=== PATIENT | female | born 1940 | race Caucasian/White ===

== ENCOUNTER 2018-04-15 15:56 | Inpatient (IN) | payer OTHER, MEDICAID ==
[~2018-04-15] VITALS: Ht 167.6 cm; Wt 81.6 kg
[~2018-04-15 15:56] MED LIST: CEPH-568 PO; DOXA4TAB2 PO; ENAL20TA PO; GLU500 PO; LORA-259 PO; TAMS-11 PO
[2018-04-15 16:59] VITALS: BP_SYST 151
[2018-04-15 17:42] VITALS: BP_SYST 151
[2018-04-15] MEDS ORDERED: MORPHINE 2 MG/ML INJ. SYRINGE IVP ONE (18:30)
[2018-04-15] MEDS ORDERED: MORPHINE 2 MG/ML INJ. SYRINGE ONE (18:33)
[2018-04-15] MEDS ORDERED: DEXTROSE 50% JECT 50 ML DISP.SYRIN IVP PRN (19:00)
[2018-04-15] MEDS ORDERED: INSULIN REGULAR, HUMAN 100 UNITS/ML, 10 ML VIAL (novoLIN R) SUBCUT PRN (19:00)
[2018-04-15 19:09] LABS: BASOPHILS % (AUTO) 0.3 % (0.0-2.0); EOSINOPHILS # (AUTO) 0.3 K/uL (0.0-0.4); EOSINOPHILS % (AUTO) 5.7 % (0.0-4.0); HEMOGLOBIN 11.2 g/dL (12.0-16.0); LYMPHOCYTES # (AUTO) 1.8 K/uL (1.0-5.5); LYMPHOCYTES % (AUTO) 32.2 % (20.5-51.5); MEAN CORPUSCULAR HEMOGLOBIN 30 pg (27-31); MEAN CORPUSCULAR HGB CONC 33 % (32-36); MEAN CORPUSCULAR VOLUME 90 fL (79.0-98.0); MONOCYTES # (AUTO) 0.4 K/uL (0.0-1.0); NEUTROPHILS # (AUTO) 3.2 K/uL (1.8-7.7); NEUTROPHILS % (AUTO) 54.8 % (40.0-70.0); PLATELET COUNT (AUTO) 172 K/uL (130-430); RED CELL DISTRIBUTION WIDTH 13.8 % (9.0-15.0); WHITE BLOOD COUNT (AUTO) 5.7 K/uL (4.8-10.8)
[2018-04-15 19:17] LABS: ALANINE AMINOTRANSFERASE 35 U/L (12-78); ALBUMIN 3.5 g/dL (3.4-4.8); ANION GAP 9 (5-15); ASPARTATE AMINOTRANSFERASE 29 U/L (10-37); CALCIUM 9.4 mg/dL (8.4-11.0); CHLORIDE 104 mmol/L (98-107); CREATININE 0.94 mg/dL (0.55-1.30); GLUCOSE 90 mg/dL (70-99); POTASSIUM 4.2 mmol/L (3.5-5.1); SODIUM SERUM 135 mmol/L (136-145); TOTAL BILIRUBIN 0.6 mg/dL (0.0-1.0); UREA NITROGEN, BLOOD 19 mg/dL (8-21)
[2018-04-15] MEDS: CEFEPIME 1 GM in D5W 50 ML IV SCH (19:57)
[2018-04-15 20:00] VITALS: BP_SYST 137
[2018-04-15] MEDS ORDERED: POLYETHYLENE GLYCOL 3350, 17 GM/ POWD.PACK PO PRN (20:15)
[2018-04-15] MEDS ORDERED: VANCOMYCIN HCL 1 GM/NS PREMIX 250 ML IV SCH (21:00)
[2018-04-15] MEDS: LORazepam 1 MG TABLET PO SCH (21:21)
[2018-04-15] MEDS: MORPHINE 4 MG/ML INJ. SYRINGE IVP PRN (21:23)
[2018-04-16 00:17] VITALS: BP_SYST 111
[2018-04-16] MEDS: MORPHINE 4 MG/ML INJ. SYRINGE IVP PRN ×2 (02:45→15:56)
[2018-04-16 08:00] VITALS: BP_SYST 112
[2018-04-16] MEDS: CEFEPIME 1 GM in D5W 50 ML IV SCH ×2 (08:51→20:06)
[2018-04-16] MEDS: ENALAPRIL MALEATE 10 MG TABLET (VASOTEC) PO SCH (08:51)
[2018-04-16] MEDS: LORazepam 1 MG TABLET PO SCH ×2 (08:51→20:17)
[2018-04-16 09:33] LABS: THYROID STIMULATING HORMONE 3.76 uIu/mL (0.34-4.82)
[2018-04-16] MEDS: DOXAZOSIN MESYLATE 2 MG TABLET PO SCH (10:53)
[2018-04-16] MEDS: ENOXAPARIN SODIUM 30 MG/0.3 ML SYRINGE SUBCUT SCH (10:56)
[2018-04-16 17:12] VITALS: BP_SYST 120
[2018-04-16 20:09] VITALS: BP_SYST 121
[2018-04-16] MEDS: VANCOMYCIN HCL 1,250 MG in NS 250 ML IV SCH (21:21)
[2018-04-17] MEDS: MORPHINE 4 MG/ML INJ. SYRINGE IVP PRN ×2 (00:26→05:41)
[2018-04-17 00:54] VITALS: BP_SYST 113
[2018-04-17] MEDS ORDERED: IOHEXOL 350 mgI/mL, 150 ML INFUS..BTL IV ONE (08:25)
[2018-04-17 08:29] VITALS: BP_SYST 112
[2018-04-17] MEDS: ENALAPRIL MALEATE 10 MG TABLET (VASOTEC) PO SCH (09:00)
[2018-04-17] MEDS: CEFEPIME 1 GM in D5W 50 ML IV SCH (09:15)
[2018-04-17] MEDS: DOXAZOSIN MESYLATE 2 MG TABLET PO SCH (09:15)
[2018-04-17] MEDS: LORazepam 1 MG TABLET PO SCH ×2 (09:15→21:33)
[2018-04-17] MEDS: ENOXAPARIN SODIUM 30 MG/0.3 ML SYRINGE SUBCUT SCH (09:17)
[2018-04-17] MEDS ORDERED: ONDANSETRON HCL 4 MG/2 ML VIAL IVP PRN (10:00)
[2018-04-17 11:19] LABS: BILIRUBIN,URINE NEGATIVE (NEGATIVE); CLARITY/URINE CLEAR (CLEAR); COLOR,URINE YELLOW (YELLOW); GLUCOSE,URINE NEGATIVE (NEGATIVE); KETONES,URINE NEGATIVE (NEGATIVE); LEUKOCYTE ESTERASE ,URINE NEGATIVE (NEGATIVE); NITRITE, URINE NEGATIVE (NEGATIVE); PROTEIN URINE NEGATIVE (NEGATIVE); UROBILINOGEN,URINE 0.2 (0.2-1.0)
[2018-04-17 11:27] LABS: INR 1.1 (0.8-1.2)
[2018-04-17 11:37] LABS: BLOOD, URINE TRACE (NEGATIVE)
[2018-04-17 11:39] LABS: BACTERIA,URINE FEW /HPF (None Seen); MUCUS,URINE None Seen /LPF (None Seen); RBC,URINE 0-3 /HPF (0-3); WBC,URINE 0-3 /HPF (0-3)
[2018-04-17 12:00] VITALS: BP_SYST 132; BP_SYST 147
[2018-04-17] MEDS: FLUOCINONIDE 0.05% TOPICAL CREAM 15 GM (LIDEX) TP SCH ×2 (14:13→21:34)
[2018-04-17] MEDS: AMPICILLIN SODIUM 1 GM in NS 50 ML IV SCH ×2 (14:13→18:19)
[2018-04-17 16:00] VITALS: BP_SYST 149
[2018-04-17 20:00] VITALS: BP_SYST 152
[2018-04-17] MEDS: VANCOMYCIN HCL 1,250 MG in NS 250 ML IV SCH (20:17)
[2018-04-18] MEDS: AMPICILLIN SODIUM 1 GM in NS 50 ML IV SCH ×3 (00:41→12:28)
[2018-04-18 01:07] VITALS: BP_SYST 141
[2018-04-18] MEDS: MORPHINE 4 MG/ML INJ. SYRINGE IVP PRN ×2 (04:49→12:41)
[2018-04-18 08:00] VITALS: BP_SYST 137
[2018-04-18] MEDS: DOXAZOSIN MESYLATE 2 MG TABLET PO SCH (09:50)
[2018-04-18] MEDS: ENALAPRIL MALEATE 10 MG TABLET (VASOTEC) PO SCH (09:51)
[2018-04-18] MEDS: LORazepam 1 MG TABLET PO SCH (09:51)
[2018-04-18] MEDS: ENOXAPARIN SODIUM 30 MG/0.3 ML SYRINGE SUBCUT SCH (09:52)
[2018-04-18] MEDS: FLUOCINONIDE 0.05% TOPICAL CREAM 15 GM (LIDEX) TP SCH (09:54)
[2018-04-18 12:00] VITALS: BP_SYST 144
[2018-04-18 14:12] VITALS: BP_SYST 140
[2018-04-18] MEDS ORDERED: HYDROCORTISONE 2.5%, 30 GM TOPICAL CREAM TP SCH (21:00)
[2018-04-18] MEDS ORDERED: CILOSTAZOL 50 MG TABLET (PLETAL) PO SCH (21:00)
[2018-04-19] MEDS ORDERED: ASPIRIN 81 MG TAB.CHEW PO SCH (09:00)
== END 2018-04-18 16:40 | DRG 863 ==
LOC: SMU 16:36
PROVIDERS: ADMIT Internal Medicine Hospice and Palliative Medicine; ATTEND Internal Medicine Hospice and Palliative Medicine
PROC: 02HV33Z Insertion of Infusion Device into Superior Vena Cava, Percutaneous Approach (ICD-10-PCS; principal; 2018-04-17)
PROC: B548ZZA Ultrasonography of Superior Vena Cava, Guidance (ICD-10-PCS; 2018-04-17)
DX: T81.40XA Infection following a procedure, unspecified, initial encounter (principal); L03.116 Cellulitis of left lower limb; I10 Essential (primary) hypertension; F41.9 Anxiety disorder, unspecified; E78.5 Hyperlipidemia, unspecified; E11.51 Type 2 diabetes mellitus with diabetic peripheral angiopathy without gangrene; I87.2 Venous insufficiency (chronic) (peripheral); Y83.8 Other surgical procedures as the cause of abnormal reaction of the patient, or of later complication, without mention of misadventure at the time of the procedure; Y92.89 Other specified places as the place of occurrence of the external cause; G51.0 Bell's palsy; K43.9 Ventral hernia without obstruction or gangrene; Z87.442 Personal history of urinary calculi; Z87.891 Personal history of nicotine dependence; Z90.49 Acquired absence of other specified parts of digestive tract; Z91.19 Patient's noncompliance with other medical treatment and regimen
CPT/HCPCS: 36415; 71045; 75635; 80053; 80061; 81000-TC; 82962; 83036; 84443-TC; 85025; 85610-TC; 85730-TC; 87081; 90656; 93005; 93306; 93923; 93970; C1751; J0290; J0692; J1650; J2270; J2405; J3370; J7050; J7060; Q9967

== ENCOUNTER 2018-06-15 16:40 | Emergency (ER) | payer OTHER, MEDICAID ==
[~2018-06-15] VITALS: Ht 167.6 cm; Wt 86.2 kg
[~2018-06-15 16:40] MED LIST changes: -CEPH-568 PO; -TAMS-11 PO
--- NOTE | 2018-06-15 16:42 | NUR ---
Patient to ER bed 06 to gown for evaluation. Side rails up.
--- NOTE | 2018-06-15 16:45 | NUR ---
Pt presents to ED for left leg pain and swelling that has gotten worse for the last month. Pt states that she saw her PMD2 weeks ago and was prescribed Gabapentin. Pt states her pain has become severe. Pt able to ambulate but pain is constant. Otherwise, the patient denies fever, chills, nausea, vomiting, abdominal pain, sick contacts, recent trauma or injury, weakness, numbness, or tingling to her extremities, or other pain at this time.
--- NOTE | 2018-06-15 16:50 | NUR ---
ER Dr. Larose at bedside examining patient.
[2018-06-15 16:52] VITALS: BP_SYST 164
[2018-06-15] MEDS ORDERED: KETOROLAC TROMETHAMINE 30 MG VIAL IVP ONE (17:00)
[2018-06-15] MEDS ORDERED: NACL 0.9% 1,000 ML IV ONE (17:00)
[2018-06-15] MEDS ORDERED: CLINDAMYCIN 600 mg/50mL D5W 50 ML IV ONE (17:00)
--- NOTE | 2018-06-15 17:40 | NUR ---
# 20 gauge angiocath placed to LAC. Use of asceptic technique. Opsite placed over site. Blood return noted. Flushed with 10 cc of normal saline. No evidence of infiltration noted. Patient tolerated well.
[2018-06-15 17:57] LABS: BASOPHILS % (AUTO) 0.4 % (0.0-2.0); EOSINOPHILS # (AUTO) 0.2 K/uL (0.0-0.4); HEMATOCRIT 34.8 % (36-48); HEMOGLOBIN 11.4 g/dL (12.0-16.0); LYMPHOCYTES # (AUTO) 1.5 K/uL (1.0-5.5); LYMPHOCYTES % (AUTO) 31.9 % (20.5-51.5); MEAN CORPUSCULAR HEMOGLOBIN 29 pg (27-31); MEAN CORPUSCULAR HGB CONC 33 % (32-36); MEAN CORPUSCULAR VOLUME 88 fL (79.0-98.0); MONOCYTES # (AUTO) 0.3 K/uL (0.0-1.0); MONOCYTES % (AUTO) 6.2 % (1.7-9.3); NEUTROPHILS # (AUTO) 2.7 K/uL (1.8-7.7); NEUTROPHILS % (AUTO) 56.5 % (40.0-70.0); PLATELET COUNT (AUTO) 182 K/uL (130-430); RED BLOOD CELL COUNT(AUTO) 3.96 MIL/uL (4.2-6.2); RED CELL DISTRIBUTION WIDTH 12.9 % (9.0-15.0); WHITE BLOOD COUNT (AUTO) 4.7 K/uL (4.8-10.8)
[2018-06-15 18:05] LABS: ANION GAP 9 (5-15); CALCIUM 9.1 mg/dL (8.4-11.0); CHLORIDE 103 mmol/L (98-107); CREATININE 0.92 mg/dL (0.55-1.30); GLUCOSE 95 mg/dL (70-99); POTASSIUM 3.8 mmol/L (3.5-5.1); SODIUM SERUM 137 mmol/L (136-145); UREA NITROGEN, BLOOD 19 mg/dL (8-21)
[2018-06-15 18:10] LABS: ALANINE AMINOTRANSFERASE 27 U/L (12-78); ALBUMIN 3.5 g/dL (3.4-4.8); ASPARTATE AMINOTRANSFERASE 26 U/L (10-37); TOTAL BILIRUBIN 0.5 mg/dL (0.0-1.0)
[2018-06-15] MEDS ORDERED: MORPHINE 4 MG/ML INJ. SYRINGE IVP ONE (18:30)
--- NOTE | 2018-06-15 19:21 | NUR ---
Received report from YOCASTA Gibson. All care endorsed.
--- NOTE | 2018-06-15 19:21 | NUR ---
Patient in bed, no s/s of acute distress noted. Gave report to YOCASTA Mon.
[2018-06-15 19:48] VITALS: BP_SYST 136
--- NOTE | 2018-06-15 19:48 | NUR ---
Patient given written and verbal discharge instructions and verbalizes understanding. ER MD discussed with patient the results and treatment provided. Patient in stable condition. ID arm band removed. IV catheter removed intact and dressing applied, no active bleeding. Rx of Clindamycin and [place] given. Patient educated on pain management and to follow up with PMD. Pain Scale 0. Opportunity for questions provided and answered. Medication side effect fact sheet provided.
== END 2018-06-15 19:48 | disposition home or self-care (01) ==
LOC: SED 16:40
DX: L03.116 Cellulitis of left lower limb (principal); E11.9 Type 2 diabetes mellitus without complications; I10 Essential (primary) hypertension; Z86.79 Personal history of other diseases of the circulatory system; Z88.1 Allergy status to other antibiotic agents
CPT/HCPCS: 36415; 80053; 83605; 85025; 87040; 93971; 96365; 96375; 99284; J1885; J2270; J3490; J7030

== ENCOUNTER 2018-06-17 14:50 | Inpatient (IN) | payer OTHER, MEDICAID ==
[~2018-06-17] VITALS: Ht 165.1 cm; Wt 84.8 kg
[2018-06-17 14:56] VITALS: BP_SYST 174
[2018-06-17 15:42] LABS: BASOPHILS % (AUTO) 0.5 % (0.0-2.0); EOSINOPHILS # (AUTO) 0.2 K/uL (0.0-0.4); EOSINOPHILS % (AUTO) 4.4 % (0.0-4.0); HEMATOCRIT 35.4 % (36-48); HEMOGLOBIN 11.8 g/dL (12.0-16.0); LYMPHOCYTES # (AUTO) 1.5 K/uL (1.0-5.5); LYMPHOCYTES % (AUTO) 32.3 % (20.5-51.5); MEAN CORPUSCULAR HEMOGLOBIN 29 pg (27-31); MEAN CORPUSCULAR HGB CONC 33 % (32-36); MEAN CORPUSCULAR VOLUME 88 fL (79.0-98.0); MONOCYTES # (AUTO) 0.2 K/uL (0.0-1.0); MONOCYTES % (AUTO) 4.6 % (1.7-9.3); NEUTROPHILS # (AUTO) 2.7 K/uL (1.8-7.7); NEUTROPHILS % (AUTO) 58.2 % (40.0-70.0); PLATELET COUNT (AUTO) 199 K/uL (130-430); RED BLOOD CELL COUNT(AUTO) 4.02 MIL/uL (4.2-6.2); RED CELL DISTRIBUTION WIDTH 12.9 % (9.0-15.0); WHITE BLOOD COUNT (AUTO) 4.6 K/uL (4.8-10.8)
[2018-06-17 15:56] LABS: ANION GAP 5 (5-15); CALCIUM 9.4 mg/dL (8.4-11.0); CHLORIDE 102 mmol/L (98-107); CREATININE 0.88 mg/dL (0.55-1.30); GLUCOSE 97 mg/dL (70-99); SODIUM SERUM 133 mmol/L (136-145); UREA NITROGEN, BLOOD 19 mg/dL (8-21)
[2018-06-17 16:00] LABS: ALANINE AMINOTRANSFERASE 31 U/L (12-78); ALBUMIN 3.6 g/dL (3.4-4.8); ASPARTATE AMINOTRANSFERASE 31 U/L (10-37); C-REACTIVE PROTEIN QUANT 1.8 mg/dL (0-0.5); TOTAL BILIRUBIN 0.5 mg/dL (0.0-1.0)
--- NOTE | 2018-06-17 17:25 | NUR ---
BROUGHT BACK TO BED #2 VIA WHEELCHAIR, PLACED IN BED AND RECEIVED REPORT. PTS DAUGHTER AT BEDSIDE FOR SUPPORT.
--- NOTE | 2018-06-17 17:30 | NUR ---
PT STATES THAT SHE WAS HERE 2 DAYS AGO AND WAS DISCHARGED. PT STATES THAT SHE TOOK JUST ONE DOSE OF ANTIBIOTICS, PT STATES THAT THE [place] IS BARELY TOUCHING HER PAIN. PT STATES THAT SHE WANTS TO BE ADMITTED TODAY AND GET IV ANTIBIOTICS WITH STRONGER PAIN MEDICATION. PT STATES THAT THE CELLULITIS HAS SPREAD IN THE LAST 2 DAYS.
[2018-06-17] MEDS ORDERED: DIPH-TET-PERTUS Vaccine 0.5 ML VIAL (ADACEL) IM ONE (17:45)
[2018-06-17] MEDS ORDERED: LIDOCAINE 1% 10 MG/ML, 20 ML MDV INJ ONE (17:45)
--- NOTE | 2018-06-17 17:48 | NUR ---
DR GONZALES PERFORMING NEEDLE ASPIRATION ON LEFT LOWER LEG CELLULITIS AT BEDSIDE, PT TOLERATED IT WELL. NO FLUID ASPIRATED.
--- NOTE | 2018-06-17 17:56 | NUR ---
Medication reconciliation completed with information provided by PATIENT. Any prior medication reconciliation on file was reviewed and corrected.
[2018-06-17] MEDS ORDERED: CLINDAMYCIN PHOSPHATE 300 MG/2 ML VIAL IM ONE (18:00)
--- NOTE | 2018-06-17 18:15 | NUR ---
Pt placed on bed odonnell
[2018-06-17] MEDS ORDERED: HYDROcodone/ACETAMIN 10-325 MG TAB PO ONE (18:30)
[2018-06-17] MEDS: CLINDAMYCIN 600 MG in D5W 50 ML IV SCH (18:33)
[2018-06-17] MEDS ORDERED: CLINDAMYCIN 600 mg/50mL D5W 50 ML IV ONE (18:39)
--- NOTE | 2018-06-17 18:43 | NUR ---
Reports was called to Mer[facility]UST in Med-surg. Patient will be admitted care of Dr. Steel. Patient will be transported to Med[facility]urg [place] [facility] by EMT.
--- NOTE | 2018-06-17 19:04 | NUR ---
ADMISSION: The patient, RUSLAN SPRINGER, 78 y/o, F admitted by HOLLAND ROBERTO MD, was given written information regarding hospital policies, unit procedures and contact persons. Valuables were checked and pt was informed her nurse will be Michael.
[2018-06-17 19:15] VITALS: BP_SYST 154
[2018-06-17 19:30] VITALS: BP_SYST 154
[2018-06-17] MEDS ORDERED: cloNIDine HCL 0.1 MG TABLET PO PRN (19:45)
[2018-06-17] MEDS ORDERED: INSULIN REGULAR, HUMAN 100 UNITS/ML, 10 ML VIAL (novoLIN R) SUBCUT PRN (19:45)
[2018-06-17] MEDS ORDERED: ENALAPRILAT DIHYDRATE 1.25 MG/ML VIAL IVP PRN (19:45)
[2018-06-17] MEDS ORDERED: DEXTROSE 50% JECT 50 ML DISP.SYRIN IVP PRN (19:45)
[2018-06-17] MEDS ORDERED: VANCOMYCIN HCL 1 GM/NS PREMIX 250 ML IV ONE (20:00)
[2018-06-17] MEDS ORDERED: MORPHINE 4 MG/ML INJ. SYRINGE IVP PRN (20:30)
[2018-06-17] MEDS: MORPHINE 4 MG/ML INJ. SYRINGE IVP PRN (20:47)
[2018-06-17] MEDS: LORazepam 1 MG TABLET PO SCH (20:50)
[2018-06-17] MEDS ORDERED: VANCOMYCIN HCL 1000 MG/VIAL IV ONE (20:55)
[2018-06-17] MEDS: CLINDAMYCIN 600 mg/50mL D5W 100 ML IV ONE (22:10)
[2018-06-17 23:21] VITALS: BP_SYST 149
[2018-06-18] MEDS: CLINDAMYCIN 600 mg/50mL D5W 100 ML IV ONE (00:27)
[2018-06-18] MEDS: MORPHINE 4 MG/ML INJ. SYRINGE IVP PRN ×4 (00:35→20:38)
[2018-06-18] MEDS: CLINDAMYCIN 600 MG in D5W 50 ML IV SCH ×4 (05:27→23:42)
--- NOTE | 2018-06-18 06:30 | NUR ---
pt.was received via the er-dept.pt.presented lt.lower extremity cellulitis;wound.i have photographed the wound.i have attended to the wound care,pt.presents diabetic history.i had attended to the blood glucose assessment;values;80,90,100.i had re-established iv access line;location;lt.hand;#24g.i have administered morphine;4mg ivp x3 doses.pt.was repositioned q-2hrs. i had provided snacks w/in th shift.i had attended to the wound care.initial care.general status stable.respiratory status stable@room air.call light/telephone placed w/in the pt's reach. was paged for thew blood glucose schedule,pain mgx medication;ordered;morphine:2mg ivp moderate pain.morphine;4mg ivp severe pain.
--- NOTE | 2018-06-18 08:07 | NUR ---
OPENING NOTE PATIENT RECEIVED RESTING IN BED, PATIENT DENIES ANY ACUTE DISTRESS, PAIN IS CONTROLLED AT THIS TIME, BREATHING IS EVEN AND UNLABORED, PATIENT IS AWAKE, ALERT, AND ORIENTED X 4, EDUCATED PATIENT DECORATING INSTRUCTOR LIGHT SYSTEM AND PLAN OF CARE, WILL CONTINUE TO MONITOR, SAFETY PRECAUTIONS IN PLACE, CALL LIGHT WITHIN REACH.
[2018-06-18 08:11] VITALS: BP_SYST 116
--- NOTE | 2018-06-18 08:35 | NUR ---
Nutrition Update Lorenzo Scale 15 noted. Pt admitted for diabetic wound Diet: [facility] [place] diet BMI: 31 kg/m2 RD to follow per nutrition care standards.
[2018-06-18] MEDS: LORazepam 1 MG TABLET PO SCH ×2 (08:40→20:37)
[2018-06-18] MEDS: DOXAZOSIN MESYLATE 2 MG TABLET PO SCH (08:40)
[2018-06-18] MEDS: metFORMIN HCL 500 MG TABLET PO SCH ×2 (08:40→17:47)
[2018-06-18] MEDS: ENALAPRIL MALEATE 10 MG TABLET (VASOTEC) PO SCH (08:41)
[2018-06-18] MEDS: VANCOMYCIN HCL 750 MG/NS 250 ML IV SCH ×2 (10:07→23:40)
--- NOTE | 2018-06-18 10:17 | NUR ---
NOTES PATIENT IS RESTING IN BED, PATIENT IS AWAKE, ALERT, AND ORIENTED, BREATHING IS EVEN AND UNLABORED, IVF INFUSING WELL WITH NO SIGNS OF INFILTRATION, PATIENT DENIES ANY ACUTE DISTRESS, PAIN IS CONTROLLED AT THIS TIME, WILL CONTINUE TO MONITOR, SAFETY PRECAUTIONS IN PLACE, CALL LIGHT WITHIN REACH.
--- NOTE | 2018-06-18 11:08 | NUR ---
ID consult called: for Dr. Gomez, regarding cellulitis, ordered by Dr. Steel, spoke with [place]
[2018-06-18 12:24] VITALS: BP_SYST 117
--- NOTE | 2018-06-18 12:25 | NUR ---
NOTES / BLOOD SUGAR BLOOD SUGAR IS 98 AT THIS TIME, NO INSULIN COVERAGE NEEDED PER SLIDING SCALE, PATIENT IS RESTING IN BED A&O X4, BREATHING IS EVEN AND UNLABORED, IVF INFUSING WELL WITH NO SIGNS OF INFILTRATION, NO ACUTE DISTRESS NOTED, PAIN IS CONTROLLED AT THIS TIME, WILL CONTINUE TO MONITOR, SAFETY PRECAUTIONS IN PLACE, CALL LIGHT WITHIN REACH.
--- NOTE | 2018-06-18 14:45 | NUR ---
NOTES PATIENT IS RESTING IN BED WITH EYES CLOSED, NO ACUTE DISTRESS NOTED, PAIN IS CONTROLLED AT THIS TIME, BREATHING IS EVEN AND UNLABORED, IVF INFUSING WELL WITH NO SIGNS OF INFILTRATION, WILL CONTINUE TO MONITOR, SAFETY PRECAUTIONS IN PLACE, CALL LIGHT WITHIN REACH.
[2018-06-18 16:02] VITALS: BP_SYST 115
--- NOTE | 2018-06-18 16:43 | NUR ---
NOTES PATIENT IS RESTING IN BED WITH EYES CLOSED, IV IS PATENT, BREATHING IS EVEN AND UNLABORED, NO SIGNS OF ACUTE DISTRESS IS NOTED, PAIN IS CONTROLLED AT THIS TIME, WILL CONTINUE TO MONITOR, SAFETY PRECAUTIONS IN PLACE, CALL LIGHT WITHIN REACH.
--- NOTE | 2018-06-18 18:44 | NUR ---
CLOSING NOTE PATIENT RESTING IN BED EATING DINNER AT THIS TIME, IVF INFUSING WELL WITH NO SIGNS OF INFILTRATION, BREATHING IS EVEN AND UNLABORED, PATIENT DENIES ANY ACUTE DISTRESS OR PAIN AT THIS TIME, ALL NEEDS WERE MET THROUGHOUT SHIFT, WILL ENDORSE REPORT TO ONCOMING NURSE, SAFETY PRECAUTIONS IN PLACE, CALL LIGHT WITHIN REACH.
--- NOTE | 2018-06-18 19:48 | NUR ---
Opening notes Received report. Patient resting comfortably in bed. No signs of distress noted. Breathing is even and unlabored. Does not complain of any pain. No needs at this moment. IV is patent and intact. Educated the patient remote operations producer light. Safety precautions in place.
[2018-06-18 20:00] VITALS: BP_SYST 111
--- NOTE | 2018-06-18 20:37 | NUR ---
Scheduled meds/prn pain meds Patient complains of 9/10 pain to left lower extremity. Educated the patient the action and side effects of medications. Patient verbalized understanding. Patient tolerated well. No signs of allergic reaction noted.
[2018-06-18 22:15] VITALS: BP_SYST 135
--- NOTE | 2018-06-18 22:30 | NUR ---
IV RE-INSERTION: Complaining of pain to IV sites. Restarted on right hand. Successful after 2 attempts. Will observe for any signs of infiltration.
--- NOTE | 2018-06-19 00:45 | NUR ---
RN rounds Patient asleep in bed. No signs of distress noted. Breathing is even and unlabored. IV is patent and intact, infusing antibiotics. Safety precautions in place.
--- NOTE | 2018-06-19 03:05 | NUR ---
RN rounds Assisted patient onto bed odonnell to void. Patient tolerated well. 100 ml of clear, yellow urine noted.
--- NOTE | 2018-06-19 04:32 | NUR ---
Pt sleeping Patient is asleep and snoring. No signs of distress noted. Safety precautions in place.
[2018-06-19] MEDS: CLINDAMYCIN 600 MG in D5W 50 ML IV SCH (05:40)
[2018-06-19] MEDS: MORPHINE 4 MG/ML INJ. SYRINGE IVP PRN ×3 (05:45→20:05)
--- NOTE | 2018-06-19 05:46 | NUR ---
Scheduled/prn meds Patient complains of 9/10 pain to left leg. Educated the patient the action and side effects of medications. Patient verbalized understanding and tolerated well. Accucheck 85. No insulin coverage necessary.
--- NOTE | 2018-06-19 06:45 | NUR ---
Closing notes Patient resting comfortably in bed. No signs of distress noted. Breathing is even and unlabored. IV is patent and intact. All needs met. Practice guidelines met throughout the shift. Call light is with the patient. Safety precautions in place. Will endorse to day shift RN.
[2018-06-19 06:55] LABS: ANION GAP 7 (5-15); CALCIUM 8.5 mg/dL (8.4-11.0); CHLORIDE 104 mmol/L (98-107); CREATININE 0.88 mg/dL (0.55-1.30); GLUCOSE 92 mg/dL (70-99); POTASSIUM 3.9 mmol/L (3.5-5.1); SODIUM SERUM 138 mmol/L (136-145); UREA NITROGEN, BLOOD 21 mg/dL (8-21)
[2018-06-19 07:01] LABS: ALANINE AMINOTRANSFERASE 20 U/L (12-78); ALBUMIN 2.6 g/dL (3.4-4.8); ASPARTATE AMINOTRANSFERASE 27 U/L (10-37); TOTAL BILIRUBIN 0.7 mg/dL (0.0-1.0)
[2018-06-19 08:00] VITALS: BP_SYST 149
--- NOTE | 2018-06-19 08:00 | NUR ---
Opening Note Report received from [facility] shift nurse. Patient is currently awake and resting in bed. No signs of distress noted at the moment. IV is on the right hand 24g, saline locked. LLE is elevated on a pillow. Call light is within reach and bed is in low position. Will continue to monitor.
[2018-06-19] MEDS: LORazepam 1 MG TABLET PO SCH ×2 (09:32→20:04)
[2018-06-19] MEDS: DOXAZOSIN MESYLATE 2 MG TABLET PO SCH (09:32)
[2018-06-19] MEDS: metFORMIN HCL 500 MG TABLET PO SCH ×2 (09:32→17:16)
[2018-06-19] MEDS: ENALAPRIL MALEATE 10 MG TABLET (VASOTEC) PO SCH (09:33)
[2018-06-19] MEDS: ENOXAPARIN SODIUM 30 MG/0.3 ML SYRINGE SUBCUT SCH (09:34)
[2018-06-19] MEDS: VANCOMYCIN HCL 750 MG/NS 250 ML IV SCH (09:35)
--- NOTE | 2018-06-19 10:35 | NUR ---
MD Rounds Dr. oHlland rounded on the patient. changed the current antibiotics.
[2018-06-19] MEDS ORDERED: FLUCONAZOLE 200 MG TABLET (DIFLUCAN) PO ONE (10:45)
[2018-06-19 11:20] VITALS: BP_SYST 146
--- NOTE | 2018-06-19 12:24 | NUR ---
Rounds Patient is resting in bed. NO signs of distress noted. Call light is within reach.
[2018-06-19] MEDS: AMPICILLIN SODIUM 1 GM in NS 50 ML IV SCH ×3 (12:29→23:33)
--- NOTE | 2018-06-19 14:18 | NUR ---
Rounds Patient ambulated from the bathroom and back into bed with the assistance of the TIRE SPOTTER.
[2018-06-19 15:10] VITALS: BP_SYST 142
--- NOTE | 2018-06-19 16:17 | NUR ---
Dietitian Recommendations * [facility] per LP, RD Please refer to Nutrition Assessment for details.
--- NOTE | 2018-06-19 16:22 | NUR ---
Rounds Patient is resting in bed. Call light is within reach.
--- NOTE | 2018-06-19 18:50 | NUR ---
Closing Note Patient is resting in bed. NO signs of acute distress noted throughout the shift. IV is on the right hand 24g running at tka. Call light is within reach and bed is in low position. Will endorse care to the oncoming nurse.
--- NOTE | 2018-06-19 19:34 | NUR ---
Opening notes Received report. Patient resting comfortably in bed. No signs of distress noted. Breathing is even and unlabored. Complains of 10/10 pain to left leg. Will medicate shortly. Educated the patient cheese production supervisor light. Safety precautions in place.
[2018-06-19 20:00] VITALS: BP_SYST 136
--- NOTE | 2018-06-19 20:04 | NUR ---
Scheduled/prn meds Patient complains of 10/10 pain to left leg. Educated the action and side effects of medications. Patient verbalized understanding and tolerated well.
--- NOTE | 2018-06-19 22:30 | NUR ---
RN rounds Patient resting comfortably in bed. No signs of distress noted. Breathing is even and unlabored. Safety precautions in place.
[2018-06-20 00:30] VITALS: BP_SYST 137
[2018-06-20] MEDS: MORPHINE 4 MG/ML INJ. SYRINGE IVP PRN ×3 (00:35→09:54)
--- NOTE | 2018-06-20 00:40 | NUR ---
RN rounds Patient complains of pain to left leg. Gave prn medication. Educated the action and side effect. Patient verbalized understanding and tolerated well. Applied barrier cream to inner thighs and saccrum per patient request due to frequent voiding.
--- NOTE | 2018-06-20 03:00 | NUR ---
RN rounds Patient resting in bed. No signs of distress noted. Breathing is even and unlabored. Safety precautions in place.
[2018-06-20] MEDS: AMPICILLIN SODIUM 1 GM in NS 50 ML IV SCH ×2 (05:24→11:32)
--- NOTE | 2018-06-20 05:25 | NUR ---
Pain meds Patient complains of pain to left leg. Educated the action and side effects of prn pain med. Patient verbalized understanding. Med given and tolerated well.
--- NOTE | 2018-06-20 07:15 | NUR ---
Closing notes Patient resting comfortably in bed. No signs of distress noted. Breathing is even and unlabored. IV is patent and intact. All needs met. Practice guidelines met throughout the shift. Call light is with the patient. Safety precautions in place. Will endorse care to day shift RN.
--- NOTE | 2018-06-20 07:16 | NUR ---
Opening Note: Patient laying in bed resting, patient denies pain and discomfort. Breathing is even and unlabored with no distress noted. IV patent and intact. Safety precautions in place; bed in lowest position, wheels locked, side rials x3. bed alarm activated and call light within reach. No needs at this time, will continue to monitor.
[2018-06-20 08:00] VITALS: BP_SYST 151
[2018-06-20] MEDS: metFORMIN HCL 500 MG TABLET PO SCH (09:00)
[2018-06-20] MEDS ORDERED: FLUCONAZOLE 200 MG TABLET (DIFLUCAN) PO SCH (09:00)
[2018-06-20] MEDS: DOXAZOSIN MESYLATE 2 MG TABLET PO SCH (09:01)
[2018-06-20] MEDS: LORazepam 1 MG TABLET PO SCH (09:01)
[2018-06-20] MEDS: ENALAPRIL MALEATE 10 MG TABLET (VASOTEC) PO SCH (09:01)
[2018-06-20] MEDS: ENOXAPARIN SODIUM 30 MG/0.3 ML SYRINGE SUBCUT SCH (09:05)
--- NOTE | 2018-06-20 10:10 | NUR ---
Wound Evaluation: Late note for 10:10 secondary to patient care. Wound Consult ordered for Low Lorenzo Score. Patient evaluated for a low Lorenzo score of 15. Patient was awake, alert, oriented, and received in a [place] Bed with an IsoFlex THERESE mattress. Patient is able to turn in bed. Skin is fair. Recommend encourage and assist patient as needed with repositioning every 2 hours with pillow support. Elevate, off-load and float bilateral heels with pillows. Offload pressure areas with pillows for pressure re-distribution. Perform skin care and monitor skin integrity Q shift. Use moisture barrier cream on moisture susceptible areas QID and PRN for soiling. Skin assessment: 1. Left Lower Extremity: Cellulitis, present on admission. Extremity has erythema, calor, mild edema, dry, flaky skin, and hemosiderin staining. No odor, no drainage or weeping present. Recommend: Cleanse extremity with mild soap and water. Pat dry. Apply lotion to involved area. Elevate and float extremity with pillows to help decrease edema. Contact wound care nurse if site opens or drains. Will continue to follow as a Lorenzo.
[2018-06-20] MEDS ORDERED: MINERAL OIL/PETROLATUM,WHITE 113 GM CREAM.GM. TP ONE (10:30)
--- NOTE | 2018-06-20 10:47 | NUR ---
Discharge Planning: DCP faxed pt referral to [facility] (f [phone] p [phone]) per Mia pt accepted to [facility]. Addendum: 06/20/18 at 1057 by Tawana Stapleton DP DCP arranged transportation with [facility] ([phone]) 1:00pm P/U to [facility] (f [phone] p [phone]) [facility]
--- NOTE | 2018-06-20 11:07 | NUR ---
Called Report: Called [facility] and gave report to YOCASTA Unger. All questions answered and call back number given.
--- NOTE | 2018-06-20 11:14 | NUR ---
Called family: Called family and spoke to son Soham Amaya. Made aware of patient's transfer.
[2018-06-20 11:49] VITALS: BP_SYST 138
[2018-06-20 12:02] VITALS: BP_SYST 138
--- NOTE | 2018-06-20 12:15 | NUR ---
IV RE-INSERTION: Complaining of pain to IV site. Restarted on left foreartm. Successful after 1 attempts. Will observe for any signs of infiltration.
--- NOTE | 2018-06-20 13:05 | NUR ---
D/C Patient Patient given medication reconciliation form and D/C instructions. Exit Care provided. Patient verbalized understanding. MD discussed with patient the results and treatment provided. Patient in stable condition, ID band removed. IV catheter intact and dressing applied, no active bleeding. Patient educated on pain management. All belongings sent with patient. Patient placed in pink gown and blanket. White wristband with name and placed. Patient transferred via BLS to [place].
[2018-06-21] MEDS ORDERED: MINERAL OIL/PETROLATUM,WHITE 113 GM CREAM.GM. TP SCH (09:00)
== END 2018-06-20 13:05 | DRG 603 ==
LOC: SED 14:50 → SMU 17:51
PROVIDERS: ADMIT Internal Medicine Hospice and Palliative Medicine; ATTEND Internal Medicine Hospice and Palliative Medicine
DX: L03.116 Cellulitis of left lower limb (principal); E11.9 Type 2 diabetes mellitus without complications; E66.9 Obesity, unspecified; I10 Essential (primary) hypertension; I87.2 Venous insufficiency (chronic) (peripheral); Z91.19 Patient's noncompliance with other medical treatment and regimen; F17.200 Nicotine dependence, unspecified, uncomplicated; Z68.31 Body mass index [BMI] 31.0-31.9, adult; Z79.4 Long term (current) use of insulin
CPT/HCPCS: 36415; 73590-TC; 80053; 80202-TC; 82962; 83605; 85025; 86140; 87040-TC; 90715; 93971; 99285; J0290; J1650; J1815; J2270; J3370; J3490; J7050; J7060

== ENCOUNTER 2019-04-02 17:08 | Emergency (ER) | payer OTHER, MEDICAID ==
[~2019-04-02] VITALS: Ht 167.6 cm; Wt 81.6 kg
[2019-04-02 17:15] VITALS: BP_SYST 164
[2019-04-02] MEDS ORDERED: KETOROLAC TROMETHAMINE 30 MG VIAL IM ONE (18:15)
[2019-04-02 18:27] LABS: BASOPHILS % (AUTO) 0.7 % (0.0-2.0); EOSINOPHILS # (AUTO) 0.1 K/uL (0.0-0.4); EOSINOPHILS % (AUTO) 2.4 % (0.0-4.0); HEMATOCRIT 34.7 % (36-48); HEMOGLOBIN 11.6 g/dL (12.0-16.0); LYMPHOCYTES # (AUTO) 1.7 K/uL (1.0-5.5); LYMPHOCYTES % (AUTO) 32.5 % (20.5-51.5); MEAN CORPUSCULAR HEMOGLOBIN 29 pg (27-31); MEAN CORPUSCULAR HGB CONC 34 % (32-36); MEAN CORPUSCULAR VOLUME 87 fL (79.0-98.0); MONOCYTES # (AUTO) 0.3 K/uL (0.0-1.0); MONOCYTES % (AUTO) 6.6 % (1.7-9.3); NEUTROPHILS % (AUTO) 57.8 % (40.0-70.0); PLATELET COUNT (AUTO) 175 K/uL (130-430); RED BLOOD CELL COUNT(AUTO) 3.99 MIL/uL (4.2-6.2); RED CELL DISTRIBUTION WIDTH 14.2 % (9.0-15.0); WHITE BLOOD COUNT (AUTO) 5.2 K/uL (4.8-10.8)
[2019-04-02 18:44] LABS: INR 1.1 (0.8-1.2); PROTHROMBIN TIME 10.6 SECS (9.5-12.5)
[2019-04-02 18:55] LABS: ANION GAP 5 (5-15); CALCIUM 9.2 mg/dL (8.4-11.0); CHLORIDE 104 mmol/L (98-107); CREATININE 0.77 mg/dL (0.55-1.30); GLUCOSE 98 mg/dL (70-99); POTASSIUM 3.5 mmol/L (3.5-5.1); SODIUM SERUM 137 mmol/L (136-145); UREA NITROGEN, BLOOD 19 mg/dL (8-21)
[2019-04-02 19:01] LABS: ALANINE AMINOTRANSFERASE 37 U/L (12-78); ALBUMIN 3.7 g/dL (3.4-4.8); AMYLASE 46 U/L (0-100); ASPARTATE AMINOTRANSFERASE 31 U/L (10-37); LACTATE DEHYDROGENASE 359 U/L (81-234); LIPASE 103 U/L (73-393); TOTAL BILIRUBIN 0.6 mg/dL (0.0-1.0)
[2019-04-02] MEDS ORDERED: HYDROcodone/ACETAMIN 7.5-325 MG TAB PO ONE (19:15)
[2019-04-02] MEDS ORDERED: IBUPROFEN 800 MG TABLET PO ONE (19:15)
[2019-04-02 19:42] VITALS: BP_SYST 159
== END 2019-04-02 19:42 | disposition home or self-care (01) ==
LOC: SED 17:08
DX: R10.84 Generalized abdominal pain (principal); E11.9 Type 2 diabetes mellitus without complications; I10 Essential (primary) hypertension; Z86.79 Personal history of other diseases of the circulatory system; Z79.899 Other long term (current) drug therapy; Z88.8 Allergy status to other drugs, medicaments and biological substances
CPT/HCPCS: 36415; 74176; 80053; 81002; 82150; 83605; 83615; 83690; 85025; 85610; 85730; 96372; 99284; J1885

== ENCOUNTER → 2019-07-05 | Emergency (ER) | payer OTHER, MEDICAID ==
[~2019-07-05] VITALS: Ht 167.6 cm; Wt 81.6 kg
[~2019-07-05] MED LIST changes: +ACETAMINOPHEN/CODEINE 300 MG-30 MG TABLET PO ONE
[2019-07-05 18:23] VITALS: BP_SYST 201
[2019-07-05 21:15] VITALS: BP_SYST 156
== END | disposition still patient (30) ==
LOC: SED 17:51
DX: S80.01XA Contusion of right knee, initial encounter (principal); S80.02XA Contusion of left knee, initial encounter; I10 Essential (primary) hypertension; E11.9 Type 2 diabetes mellitus without complications; Z88.8 Allergy status to other drugs, medicaments and biological substances; Z79.84 Long term (current) use of oral hypoglycemic drugs; Z79.899 Other long term (current) drug therapy; W01.198A Fall on same level from slipping, tripping and stumbling with subsequent striking against other object, initial encounter; Y93.89 Activity, other specified; Y92.89 Other specified places as the place of occurrence of the external cause; Y99.8 Other external cause status
CPT/HCPCS: 73564; 82962; 99283

== ENCOUNTER 2020-06-20 17:49 | Emergency (ER) | payer OTHER, MEDICAID ==
[~2020-06-20] VITALS: Ht 170.2 cm; Wt 95.3 kg
[~2020-06-20 17:49] MED LIST changes: -ACETAMINOPHEN/CODEINE 300 MG-30 MG TABLET PO ONE; -ENAL20TA PO; +ENAL20TA18 PO
[2020-06-20 18:37] VITALS: BP_SYST 161
[2020-06-20 19:10] LABS: BASOPHILS % (AUTO) 0.5 % (0.0-2.0); EOSINOPHILS # (AUTO) 0.7 K/uL (0.0-0.4); EOSINOPHILS % (AUTO) 8.9 % (0.0-4.0); HEMATOCRIT 30.3 % (36-48); HEMOGLOBIN 10.3 g/dL (12.0-16.0); LYMPHOCYTES # (AUTO) 1.7 K/uL (1.0-5.5); LYMPHOCYTES % (AUTO) 21.9 % (20.5-51.5); MEAN CORPUSCULAR HEMOGLOBIN 30 pg (27-31); MEAN CORPUSCULAR HGB CONC 34 % (32-36); MEAN CORPUSCULAR VOLUME 87 fL (79.0-98.0); MONOCYTES # (AUTO) 0.5 K/uL (0.0-1.0); MONOCYTES % (AUTO) 6.3 % (1.7-9.3); NEUTROPHILS # (AUTO) 4.9 K/uL (1.8-7.7); NEUTROPHILS % (AUTO) 62.4 % (40.0-70.0); PLATELET COUNT (AUTO) 205 K/uL (130-430); RED BLOOD CELL COUNT(AUTO) 3.47 MIL/uL (4.2-6.2); RED CELL DISTRIBUTION WIDTH 13.7 % (9.0-15.0); WHITE BLOOD COUNT (AUTO) 7.8 K/uL (4.8-10.8)
[2020-06-20 19:30] LABS: ANION GAP 11 (5-15); CALCIUM 8.7 mg/dL (8.4-11.0); CHLORIDE 102 mmol/L (98-107); CREATININE 1.09 mg/dL (0.55-1.30); GLUCOSE 117 mg/dL (70-99); POTASSIUM 3.8 mmol/L (3.5-5.1); SODIUM SERUM 136 mmol/L (136-145); UREA NITROGEN, BLOOD 26 mg/dL (8-21)
[2020-06-20 19:33] LABS: INR 1.2 (0.8-1.2); PROTHROMBIN TIME 11.8 SECS (9.5-12.5)
[2020-06-20 19:48] LABS: ALANINE AMINOTRANSFERASE 39 U/L (12-78); ASPARTATE AMINOTRANSFERASE 26 U/L (10-37); LACTATE DEHYDROGENASE 332 U/L (81-234); TOTAL BILIRUBIN 0.7 mg/dL (0.0-1.0)
[2020-06-20 20:12] LABS: CKMB RELATIVE INDEX 4.2 (0.0-2.9); CREATINE KINASE MB 16.1 ng/mL (0-3.6)
[2020-06-20 20:54] LABS: C-REACTIVE PROTEIN QUANT 29.3 mg/dL (0-0.5)
[2020-06-20 21:10] VITALS: BP_SYST 161
[2020-06-21] MEDS ORDERED: ACETAMINOPHEN 325 MG TABLET ONE (01:11)
[2020-06-21] MEDS ORDERED: PROPOFOL DRIP 100 ML IV ONE (10:43)
== END 2020-06-20 20:20 | disposition home or self-care (01) ==
LOC: SED 17:49
DX: U07.1 COVID-19 (principal); J12.89 Other viral pneumonia; I10 Essential (primary) hypertension; E11.9 Type 2 diabetes mellitus without complications; Z88.1 Allergy status to other antibiotic agents; Z88.8 Allergy status to other drugs, medicaments and biological substances; Z79.84 Long term (current) use of oral hypoglycemic drugs; Z79.899 Other long term (current) drug therapy
CPT/HCPCS: 36415; 36600; 71045; 80053; 82550-TC; 82553-TC; 82728; 82803-TC; 83605; 83615-TC; 83880; 84484; 85025; 85379; 85384-TC; 85610-TC; 85730-TC; 86140; 87040-TC; 93005; 99285; J2704

== ENCOUNTER 2020-12-13 16:44 | Emergency (ER) | payer OTHER, MEDICAID ==
[~2020-12-13] VITALS: Ht 167.6 cm; Wt 106.6 kg
[~2020-12-13 16:44] MED LIST changes: -ENAL20TA18 PO; -GLU500 PO; +NOR10 PO
[2020-12-13 17:04] VITALS: BP_SYST 144
[2020-12-13 18:24] LABS: HEMATOCRIT 31.7 % (36-48); HEMOGLOBIN 10.6 g/dL (12.0-16.0); MEAN CORPUSCULAR VOLUME 86 fL (79.0-98.0); RED BLOOD CELL COUNT(AUTO) 3.68 MIL/uL (4.2-6.2); WHITE BLOOD COUNT (AUTO) 5.4 K/uL (4.8-10.8)
[2020-12-13 18:25] LABS: BASOPHILS % (AUTO) 1.3 % (0.0-2.0); EOSINOPHILS % (AUTO) 3.6 % (0.0-4.0); LYMPHOCYTES # (AUTO) 1.7 K/uL (1.0-5.5); LYMPHOCYTES % (AUTO) 32.1 % (20.5-51.5); MEAN CORPUSCULAR HEMOGLOBIN 29 pg (27-31); MEAN CORPUSCULAR HGB CONC 33 % (32-36); MONOCYTES % (AUTO) 5.2 % (1.7-9.3); NEUTROPHILS # (AUTO) 3.1 K/uL (1.8-7.7); NEUTROPHILS % (AUTO) 57.8 % (40.0-70.0); PLATELET COUNT (AUTO) 179 K/uL (130-430); RED CELL DISTRIBUTION WIDTH 14.4 % (9.0-15.0)
[2020-12-13 18:26] LABS: BASOPHILS # (AUTO) 0.1 K/uL (0.0-0.2); EOSINOPHILS # (AUTO) 0.2 K/uL (0.0-0.4); MONOCYTES # (AUTO) 0.3 K/uL (0.0-1.0)
[2020-12-13 18:36] LABS: PROTHROMBIN TIME 10.4 SECS (9.5-12.5)
[2020-12-13 18:43] LABS: ANION GAP 12 (5-15); CHLORIDE 106 mmol/L (98-107); CREATININE 0.84 mg/dL (0.55-1.30); GLUCOSE 111 mg/dL (70-99); POTASSIUM 3.8 mmol/L (3.5-5.1); SODIUM SERUM 141 mmol/L (136-145); UREA NITROGEN, BLOOD 20 mg/dL (8-21)
[2020-12-13 18:49] LABS: ALANINE AMINOTRANSFERASE 30 U/L (12-78); ALBUMIN 3.6 g/dL (3.4-4.8); ASPARTATE AMINOTRANSFERASE 26 U/L (10-37); TOTAL BILIRUBIN 0.3 mg/dL (0.0-1.0)
[2020-12-13 18:58] LABS: C-REACTIVE PROTEIN QUANT 0.9 mg/dL (0-0.5)
[2020-12-13 19:28] VITALS: BP_SYST 135
== END 2020-12-13 19:27 | disposition home or self-care (01) ==
LOC: SED 16:44
DX: R60.0 Localized edema (principal); I10 Essential (primary) hypertension; E11.9 Type 2 diabetes mellitus without complications; Z88.1 Allergy status to other antibiotic agents; Z88.8 Allergy status to other drugs, medicaments and biological substances; Z79.899 Other long term (current) drug therapy
CPT/HCPCS: 36415; 71045; 80053; 83880; 84484; 85025; 85610-TC; 85730-TC; 86140; 93005; 93971; 99285

== ENCOUNTER 2020-12-22 18:13 | Emergency (ER) | payer OTHER, MEDICAID ==
[~2020-12-22] VITALS: Ht 167.6 cm; Wt 81.6 kg
[2020-12-22 18:29] VITALS: BP_SYST 161
[2020-12-22 19:26] LABS: BASOPHILS % (AUTO) 0.9 % (0.0-2.0); EOSINOPHILS # (AUTO) 0.2 K/uL (0.0-0.4); EOSINOPHILS % (AUTO) 4.2 % (0.0-4.0); HEMATOCRIT 30.4 % (36-48); HEMOGLOBIN 10.4 g/dL (12.0-16.0); LYMPHOCYTES # (AUTO) 1.8 K/uL (1.0-5.5); LYMPHOCYTES % (AUTO) 31.5 % (20.5-51.5); MEAN CORPUSCULAR HEMOGLOBIN 29 pg (27-31); MEAN CORPUSCULAR HGB CONC 34 % (32-36); MEAN CORPUSCULAR VOLUME 85 fL (79.0-98.0); MONOCYTES # (AUTO) 0.4 K/uL (0.0-1.0); MONOCYTES % (AUTO) 6.7 % (1.7-9.3); NEUTROPHILS # (AUTO) 3.2 K/uL (1.8-7.7); NEUTROPHILS % (AUTO) 56.7 % (40.0-70.0); PLATELET COUNT (AUTO) 164 K/uL (130-430); RED BLOOD CELL COUNT(AUTO) 3.57 MIL/uL (4.2-6.2); RED CELL DISTRIBUTION WIDTH 14.3 % (9.0-15.0); WHITE BLOOD COUNT (AUTO) 5.7 K/uL (4.8-10.8)
[2020-12-22 19:42] LABS: ANION GAP 9 (5-15); CALCIUM 9.1 mg/dL (8.4-11.0); CHLORIDE 104 mmol/L (98-107); CREATININE 0.94 mg/dL (0.55-1.30); GLUCOSE 97 mg/dL (70-99); POTASSIUM 4.4 mmol/L (3.5-5.1); SODIUM SERUM 137 mmol/L (136-145); UREA NITROGEN, BLOOD 25 mg/dL (8-21)
[2020-12-22 19:48] LABS: ALANINE AMINOTRANSFERASE 31 U/L (12-78); ALBUMIN 3.5 g/dL (3.4-4.8); ASPARTATE AMINOTRANSFERASE 26 U/L (10-37); TOTAL BILIRUBIN 0.4 mg/dL (0.0-1.0)
[2020-12-22 19:57] LABS: C-REACTIVE PROTEIN QUANT 0.7 mg/dL (0-0.5)
[2020-12-22 20:14] LABS: INR 1.1 (0.8-1.2); PROTHROMBIN TIME 10.8 SECS (9.5-12.5)
[2020-12-22] MEDS ORDERED: LEVO750T45 PO (21:26)
[2020-12-22] MEDS ORDERED: IBUP-1969 PO (21:26)
[2020-12-22 21:48] VITALS: BP_SYST 147
== END 2020-12-22 21:48 | disposition home or self-care (01) ==
LOC: SED 18:13
DX: L03.116 Cellulitis of left lower limb (principal); I10 Essential (primary) hypertension; E11.9 Type 2 diabetes mellitus without complications; Z79.899 Other long term (current) drug therapy; Z88.8 Allergy status to other drugs, medicaments and biological substances
CPT/HCPCS: 36415; 73700-TC; 76376; 80053; 85025; 85610-TC; 85730-TC; 86140; 87040-TC; 99285

== ENCOUNTER 2021-01-11 14:02 | Inpatient (IN) | payer OTHER, MEDICAID, SELFPAY ==
[~2021-01-11] VITALS: Ht 167.6 cm; Wt 88.5 kg
[~2021-01-11 14:02] MED LIST changes: +IBUP-1969 PO; +LEVO750T45 PO
[2021-01-11 14:17] VITALS: BP_SYST 143
[2021-01-11] MEDS ORDERED: NS 500 ML IV SCH (15:15)
[2021-01-11 15:35] LABS: BASOPHILS % (AUTO) 0.6 % (0.0-2.0); EOSINOPHILS # (AUTO) 0.4 K/uL (0.0-0.4); EOSINOPHILS % (AUTO) 7.1 % (0.0-4.0); HEMOGLOBIN 10.2 g/dL (12.0-16.0); LYMPHOCYTES # (AUTO) 1.6 K/uL (1.0-5.5); LYMPHOCYTES % (AUTO) 31.8 % (20.5-51.5); MEAN CORPUSCULAR HEMOGLOBIN 29 pg (27-31); MEAN CORPUSCULAR HGB CONC 34 % (32-36); MEAN CORPUSCULAR VOLUME 86 fL (79.0-98.0); MONOCYTES # (AUTO) 0.4 K/uL (0.0-1.0); MONOCYTES % (AUTO) 7.4 % (1.7-9.3); NEUTROPHILS # (AUTO) 2.7 K/uL (1.8-7.7); NEUTROPHILS % (AUTO) 53.1 % (40.0-70.0); PLATELET COUNT (AUTO) 175 K/uL (130-430); RED CELL DISTRIBUTION WIDTH 14.4 % (9.0-15.0)
[2021-01-11] MEDS ORDERED: GLUXR500 PO (15:54)
[2021-01-11] MEDS ORDERED: DOXA4TAB2 PO (15:54)
[2021-01-11] MEDS ORDERED: AMLO2.5T2 PO (15:54)
[2021-01-11] MEDS ORDERED: EFF37 PO (15:54)
[2021-01-11] MEDS ORDERED: ENAL20TA18 PO (15:54)
[2021-01-11 15:58] LABS: C-REACTIVE PROTEIN QUANT 0.7 mg/dL (0-0.5)
[2021-01-11 16:16] LABS: ANION GAP 9 (5-15); CALCIUM 9.1 mg/dL (8.4-11.0); CHLORIDE 106 mmol/L (98-107); CREATININE 0.87 mg/dL (0.55-1.30); GLUCOSE 152 mg/dL (70-99); POTASSIUM 4.4 mmol/L (3.5-5.1); SODIUM SERUM 141 mmol/L (136-145); TOTAL BILIRUBIN 0.3 mg/dL (0.0-1.0); UREA NITROGEN, BLOOD 22 mg/dL (8-21)
[2021-01-11 16:17] LABS: ALANINE AMINOTRANSFERASE 34 U/L (12-78); ALBUMIN 3.4 g/dL (3.4-4.8); ASPARTATE AMINOTRANSFERASE 26 U/L (10-37)
[2021-01-11 16:42] LABS: ERYTHROCYTE SEDIMENTATION RATE 44 MM/HR (0-20)
[2021-01-11] MEDS ORDERED: VANCOMYCIN HCL 1,000 MG in NS 250 ML IV ONE (16:45)
[2021-01-11] MEDS ORDERED: PIPERACILLIN/TAZO 3.375 GM in NS 50 ML IV ONE (16:45)
[2021-01-11] MEDS ORDERED: VANCOMYCIN HCL 1000 MG/VIAL IV ONE (17:03)
[2021-01-11] MEDS ORDERED: PIPERACILLIN/TAZOBACTAM 3.375 GM/VIAL (ZOSYN) IV ONE (17:04)
[2021-01-11 20:45] VITALS: BP_SYST 129
[2021-01-11 20:58] VITALS: BP_SYST 129
[2021-01-11] MEDS ORDERED: IBUPROFEN 600 MG TABLET PO PRN (22:45)
[2021-01-11] MEDS ORDERED: HYDROcodone/ACETAMIN 5-325 MG TAB (NORCO/ VICODIN) PO PRN (22:45)
[2021-01-11] MEDS ORDERED: ACETAMINOPHEN 325 MG TABLET PO PRN (22:45)
[2021-01-11] MEDS ORDERED: LORazepam 2 MG/ML VIAL IVP PRN (23:00)
[2021-01-11] MEDS: LORazepam 1 MG TABLET PO SCH (23:18)
[2021-01-11] MEDS: HYDROcodone/ACETAMIN 10-325 MG TAB PO PRN (23:19)
[2021-01-12 00:21] VITALS: BP_SYST 137
[2021-01-12] MEDS ORDERED: PIPERACILLIN/TAZOBACTAM 3.375 GM/VIAL (ZOSYN) IV ONE (00:21)
[2021-01-12] MEDS: PIPERACILLIN/TAZO 3.375/DEX-IS 50 ML IV SCH ×5 (01:10→23:38)
[2021-01-12] MEDS: HYDROcodone/ACETAMIN 10-325 MG TAB PO PRN (04:47)
[2021-01-12] MEDS ORDERED: NORMAL SALINE 5 ML DISP.SYRIN IVF SCH (06:00)
[2021-01-12] MEDS: NORMAL SALINE 5 ML DISP.SYRIN IVF SCH ×3 (06:09→22:58)
[2021-01-12 06:56] LABS: BASOPHILS % (AUTO) 0.4 % (0.0-2.0); EOSINOPHILS # (AUTO) 0.3 K/uL (0.0-0.4); EOSINOPHILS % (AUTO) 6.5 % (0.0-4.0); HEMATOCRIT 29.6 % (36-48); HEMOGLOBIN 9.9 g/dL (12.0-16.0); LYMPHOCYTES # (AUTO) 0.7 K/uL (1.0-5.5); LYMPHOCYTES % (AUTO) 13.6 % (20.5-51.5); MEAN CORPUSCULAR HEMOGLOBIN 29 pg (27-31); MEAN CORPUSCULAR HGB CONC 34 % (32-36); MEAN CORPUSCULAR VOLUME 86 fL (79.0-98.0); MONOCYTES # (AUTO) 0.3 K/uL (0.0-1.0); MONOCYTES % (AUTO) 5.9 % (1.7-9.3); NEUTROPHILS # (AUTO) 3.7 K/uL (1.8-7.7); NEUTROPHILS % (AUTO) 73.6 % (40.0-70.0); PLATELET COUNT (AUTO) 170 K/uL (130-430); RED BLOOD CELL COUNT(AUTO) 3.43 MIL/uL (4.2-6.2); RED CELL DISTRIBUTION WIDTH 14.4 % (9.0-15.0)
[2021-01-12 07:36] LABS: ALANINE AMINOTRANSFERASE 29 U/L (12-78); ANION GAP 5 (5-15); ASPARTATE AMINOTRANSFERASE 26 U/L (10-37); CALCIUM 8.6 mg/dL (8.4-11.0); CHLORIDE 108 mmol/L (98-107); CREATININE 0.78 mg/dL (0.55-1.30); GLUCOSE 101 mg/dL (70-99); PHOSPHORUS 3.9 mg/dL (2.7-4.5); POTASSIUM 4.5 mmol/L (3.5-5.1); SODIUM SERUM 141 mmol/L (136-145); UREA NITROGEN, BLOOD 17 mg/dL (8-21)
[2021-01-12 08:00] VITALS: BP_SYST 123
[2021-01-12 08:34] LABS: TOTAL BILIRUBIN 0.5 mg/dL (0.0-1.0)
[2021-01-12] MEDS ORDERED: amLODIPine BESYLATE 10 MG TABLET PO SCH (09:00)
[2021-01-12] MEDS ORDERED: DOXAZOSIN MESYLATE 2 MG TABLET PO SCH (09:00)
[2021-01-12] MEDS: ONDANSETRON HCL 4 MG/2 ML VIAL IVP PRN (09:01)
[2021-01-12] MEDS ORDERED: LORazepam 1 MG TABLET ONE (09:25)
[2021-01-12] MEDS: CLOTRIMAZOLE/BETAMET DIPROP 15 GM TUBE TP SCH ×2 (09:25→21:50)
[2021-01-12] MEDS: LORazepam 1 MG TABLET PO SCH ×2 (09:29→21:50)
[2021-01-12] MEDS: levoFLOXacin 750 MG TABLET PO SCH (09:30)
[2021-01-12] MEDS: DOXAZOSIN MESYLATE 2 MG TABLET PO SCH (09:30)
[2021-01-12] MEDS: Effexor 37.5 MG TAB PO SCH (09:32)
[2021-01-12] MEDS: amLODIPine BESYLATE 5 MG TABLET PO SCH (09:33)
[2021-01-12] MEDS: lisinopriL 20 MG TABLET PO SCH (09:33)
[2021-01-12 12:10] VITALS: BP_SYST 116
[2021-01-12 16:10] VITALS: BP_SYST 118
[2021-01-12] MEDS ORDERED: NALOXONE HCL 0.4 MG/ML AMP (NARCAN) IVP PRN ×2 (17:45)
[2021-01-12] MEDS ORDERED: HYDROcodone/ACETAMIN 10-325 MG TAB PO PRN (17:45)
[2021-01-12] MEDS ORDERED: INSULIN REGULAR, HUMAN 100 UNITS/ML, 10 ML VIAL (humuLIN R) SUBCUT PRN (17:45)
[2021-01-12] MEDS ORDERED: ACETAMINOPHEN 325 MG TABLET PO PRN (17:45)
[2021-01-12] MEDS ORDERED: ONDANSETRON HCL 4 MG/2 ML VIAL IVP PRN (17:45)
[2021-01-12] MEDS ORDERED: LORazepam 2 MG/ML VIAL IVP PRN (17:45)
[2021-01-12] MEDS ORDERED: HYDROcodone/ACETAMIN 5-325 MG TAB (NORCO/ VICODIN) PO PRN (17:45)
[2021-01-12] MEDS: VANCOMYCIN HCL 1,500 MG in NS 250 ML IV SCH (17:52)
[2021-01-12 20:00] VITALS: BP_SYST 129
[2021-01-13 02:12] VITALS: BP_SYST 186
[2021-01-13] MEDS: NORMAL SALINE 5 ML DISP.SYRIN IVF SCH ×3 (06:12→21:13)
[2021-01-13] MEDS: PIPERACILLIN/TAZO 3.375/DEX-IS 50 ML IV SCH ×3 (06:13→18:37)
[2021-01-13 06:33] LABS: BASOPHILS % (AUTO) 0.3 % (0.0-2.0); EOSINOPHILS # (AUTO) 0.4 K/uL (0.0-0.4); EOSINOPHILS % (AUTO) 10.8 % (0.0-4.0); HEMATOCRIT 30.4 % (36-48); HEMOGLOBIN 10.4 g/dL (12.0-16.0); LYMPHOCYTES # (AUTO) 0.7 K/uL (1.0-5.5); LYMPHOCYTES % (AUTO) 16.5 % (20.5-51.5); MEAN CORPUSCULAR HEMOGLOBIN 30 pg (27-31); MEAN CORPUSCULAR HGB CONC 34 % (32-36); MEAN CORPUSCULAR VOLUME 86 fL (79.0-98.0); MONOCYTES # (AUTO) 0.3 K/uL (0.0-1.0); MONOCYTES % (AUTO) 7.5 % (1.7-9.3); NEUTROPHILS # (AUTO) 2.6 K/uL (1.8-7.7); NEUTROPHILS % (AUTO) 64.9 % (40.0-70.0); PLATELET COUNT (AUTO) 157 K/uL (130-430); RED BLOOD CELL COUNT(AUTO) 3.52 MIL/uL (4.2-6.2); RED CELL DISTRIBUTION WIDTH 14.2 % (9.0-15.0)
[2021-01-13 06:38] LABS: ANION GAP 6 (5-15); CALCIUM 8.4 mg/dL (8.4-11.0); CHLORIDE 107 mmol/L (98-107); CREATININE 0.77 mg/dL (0.55-1.30); GLUCOSE 95 mg/dL (70-99); POTASSIUM 4.3 mmol/L (3.5-5.1); SODIUM SERUM 139 mmol/L (136-145); UREA NITROGEN, BLOOD 14 mg/dL (8-21)
[2021-01-13 07:31] LABS: C-REACTIVE PROTEIN QUANT 2.4 mg/dL (0-0.5)
[2021-01-13 08:00] VITALS: BP_SYST 138
[2021-01-13] MEDS: CLOTRIMAZOLE/BETAMET DIPROP 15 GM TUBE TP SCH ×2 (09:04→21:12)
[2021-01-13] MEDS: DOXAZOSIN MESYLATE 2 MG TABLET PO SCH (09:05)
[2021-01-13] MEDS: lisinopriL 20 MG TABLET PO SCH (09:05)
[2021-01-13] MEDS: amLODIPine BESYLATE 5 MG TABLET PO SCH (09:05)
[2021-01-13] MEDS: Effexor 37.5 MG TAB PO SCH (09:06)
[2021-01-13] MEDS: LORazepam 1 MG TABLET PO SCH ×2 (09:07→21:13)
[2021-01-13] MEDS: levoFLOXacin 750 MG TABLET PO SCH (09:07)
[2021-01-13 09:44] LABS: ERYTHROCYTE SEDIMENTATION RATE 36 MM/HR (0-20)
[2021-01-13] MEDS: ONDANSETRON HCL 4 MG/2 ML VIAL IVP PRN (11:37)
[2021-01-13 12:10] VITALS: BP_SYST 127
[2021-01-13] MEDS: VANCOMYCIN HCL 1,500 MG in NS 250 ML IV SCH (16:18)
[2021-01-13 16:39] VITALS: BP_SYST 122
[2021-01-13 20:00] VITALS: BP_SYST 134
[2021-01-13] MEDS: DOCUSATE SODIUM 100 MG CAPSULE PO SCH (21:13)
[2021-01-13] MEDS ORDERED: DOCUSATE SODIUM 100 MG CAPSULE PO ONE (21:13)
[2021-01-14] MEDS: PIPERACILLIN/TAZO 3.375/DEX-IS 50 ML IV SCH ×3 (00:32→12:45)
[2021-01-14 01:08] VITALS: BP_SYST 127
[2021-01-14] MEDS: NORMAL SALINE 5 ML DISP.SYRIN IVF SCH ×2 (06:24→14:27)
[2021-01-14 07:17] LABS: BASOPHILS % (AUTO) 0.4 % (0.0-2.0); EOSINOPHILS # (AUTO) 0.4 K/uL (0.0-0.4); EOSINOPHILS % (AUTO) 10.8 % (0.0-4.0); HEMATOCRIT 29.1 % (36-48); LYMPHOCYTES % (AUTO) 23.6 % (20.5-51.5); MEAN CORPUSCULAR HEMOGLOBIN 29 pg (27-31); MEAN CORPUSCULAR HGB CONC 34 % (32-36); MEAN CORPUSCULAR VOLUME 85 fL (79.0-98.0); MONOCYTES # (AUTO) 0.4 K/uL (0.0-1.0); MONOCYTES % (AUTO) 10.1 % (1.7-9.3); NEUTROPHILS # (AUTO) 2.3 K/uL (1.8-7.7); NEUTROPHILS % (AUTO) 55.1 % (40.0-70.0); PLATELET COUNT (AUTO) 152 K/uL (130-430); RED BLOOD CELL COUNT(AUTO) 3.41 MIL/uL (4.2-6.2); RED CELL DISTRIBUTION WIDTH 14.3 % (9.0-15.0); WHITE BLOOD COUNT (AUTO) 4.1 K/uL (4.8-10.8)
[2021-01-14 07:39] LABS: ALANINE AMINOTRANSFERASE 31 U/L (12-78); ALBUMIN 2.8 g/dL (3.4-4.8); ASPARTATE AMINOTRANSFERASE 27 U/L (10-37); CALCIUM 8.2 mg/dL (8.4-11.0); CHLORIDE 105 mmol/L (98-107); CREATININE 0.86 mg/dL (0.55-1.30); GLUCOSE 86 mg/dL (70-99); POTASSIUM 4.1 mmol/L (3.5-5.1); SODIUM SERUM 137 mmol/L (136-145); TOTAL BILIRUBIN 0.3 mg/dL (0.0-1.0); UREA NITROGEN, BLOOD 12 mg/dL (8-21)
[2021-01-14 08:17] VITALS: BP_SYST 121
[2021-01-14 08:37] LABS: ANION GAP 7 (5-15)
[2021-01-14] MEDS: amLODIPine BESYLATE 5 MG TABLET PO SCH (10:21)
[2021-01-14] MEDS: DOXAZOSIN MESYLATE 2 MG TABLET PO SCH (10:22)
[2021-01-14] MEDS: LORazepam 1 MG TABLET PO SCH (10:23)
[2021-01-14] MEDS: lisinopriL 20 MG TABLET PO SCH (10:23)
[2021-01-14] MEDS: levoFLOXacin 750 MG TABLET PO SCH (10:24)
[2021-01-14 10:33] LABS: ERYTHROCYTE SEDIMENTATION RATE 34 MM/HR (0-20)
[2021-01-14] MEDS: Effexor 37.5 MG TAB PO SCH (10:33)
[2021-01-14] MEDS: CLOTRIMAZOLE/BETAMET DIPROP 15 GM TUBE TP SCH (10:33)
[2021-01-14] MEDS: DOCUSATE SODIUM 100 MG CAPSULE PO SCH (10:48)
[2021-01-14 11:20] VITALS: BP_SYST 114
[2021-01-14] MEDS: VANCOMYCIN HCL 1,500 MG in NS 250 ML IV SCH (16:18)
[2021-01-14 16:24] VITALS: BP_SYST 128
[2021-01-14 17:55] VITALS: BP_SYST 125
== END 2021-01-14 19:00 | DRG 863 ==
LOC: SED 14:02 → SMU 18:16
PROVIDERS: ADMIT Preventive Medicine Preventive Medicine/Occupational Environmental Medicine; ATTEND Preventive Medicine Preventive Medicine/Occupational Environmental Medicine
DX: T81.40XA Infection following a procedure, unspecified, initial encounter (principal); L03.116 Cellulitis of left lower limb; D64.9 Anemia, unspecified; R79.89 Other specified abnormal findings of blood chemistry; I25.10 Atherosclerotic heart disease of native coronary artery without angina pectoris; I87.2 Venous insufficiency (chronic) (peripheral); E11.65 Type 2 diabetes mellitus with hyperglycemia; D72.819 Decreased white blood cell count, unspecified; E83.52 Hypercalcemia; Z20.822 Contact with and (suspected) exposure to COVID-19; B35.6 Tinea cruris; E88.09 Other disorders of plasma-protein metabolism, not elsewhere classified; Y83.8 Other surgical procedures as the cause of abnormal reaction of the patient, or of later complication, without mention of misadventure at the time of the procedure; E11.51 Type 2 diabetes mellitus with diabetic peripheral angiopathy without gangrene; F41.9 Anxiety disorder, unspecified; I10 Essential (primary) hypertension; Z88.8 Allergy status to other drugs, medicaments and biological substances; Z79.899 Other long term (current) drug therapy; Z79.84 Long term (current) use of oral hypoglycemic drugs; Y92.89 Other specified places as the place of occurrence of the external cause
CPT/HCPCS: 36415; 73590-TC; 73700-TC; 80048; 80053; 82962; 83605; 83735; 84100; 85025; 85651-TC; 86140; 87040-TC; 93970; 96365; 96366; 96368; 99285; J1815; J2060; J2405; J2543; J3370; J7050; Q9967

== ENCOUNTER 2022-01-12 14:04 | Emergency (ER) | payer OTHER, MEDICAID ==
[~2022-01-12] VITALS: Ht 167.6 cm; Wt 81.6 kg
[~2022-01-12 14:04] MED LIST changes: +AMLO2.5T2 PO; +EFF37 PO; +ENAL20TA18 PO; +GLUXR500 PO
[2022-01-12 14:17] VITALS: BP_SYST 138
--- NOTE | 2022-01-12 14:18 | NUR ---
Patient triaged and placed in waiting room. VSS and patient appears in no acute distress at this time. Accompanied by FAMILY, awaiting available bed, and MD notified of need for MSE.
--- NOTE | 2022-01-12 15:15 | NUR ---
DR GONZALES TO WAITING ROOM TO EVALUATE PT, UNABLE TO LOCATE PT IN WAITING ROOM
--- NOTE | 2022-01-12 15:32 | NUR ---
UNABLE TO LOCATE PT IN WAITING ROOM.
--- NOTE | 2022-01-12 15:50 | NUR ---
PT NOT IN WAITING ROOM. PT LWBS
== END 2022-01-12 15:50 | disposition left against medical advice (07) ==
LOC: SED 14:04
DX: M25.562 Pain in left knee (principal); Z53.21 Procedure and treatment not carried out due to patient leaving prior to being seen by health care provider

== ENCOUNTER 2023-07-17 15:24 | Inpatient (IN) | payer OTHER, MEDICAID ==
[~2023-07-17] VITALS: Ht 167.6 cm; Wt 76.7 kg
[~2023-07-17 15:24] MED LIST changes: +DOXA-8 PO; -DOXA4TAB2 PO; +ENAL-79 PO; -ENAL20TA18 PO; -LEVO750T45 PO; +LEVO750T64 PO
[2023-07-17 16:12] VITALS: BP_SYST 112; PULSE 104; RESP 18; TEMP 98.1; O2SAT 97
[2023-07-17] MEDS ORDERED: cefTRIAXone 1 GM VIAL ONE (16:51)
[2023-07-17] MEDS: cefTRIAXone 1 GM in D5W 50 ML IV ONE (16:55)
[2023-07-17 17:06] LABS: BASOPHILS % (AUTO) 0.7 % (0.0-2.0); EOSINOPHILS # (AUTO) 0.2 K/uL (0.0-0.4); EOSINOPHILS % (AUTO) 2.7 % (0.0-4.0); HEMOGLOBIN 11.4 g/dL (12.0-16.0); LYMPHOCYTES # (AUTO) 2.1 K/uL (1.0-5.5); LYMPHOCYTES % (AUTO) 32.4 % (20.5-51.5); MEAN CORPUSCULAR HEMOGLOBIN 29 pg (27-31); MEAN CORPUSCULAR HGB CONC 35 % (32-36); MEAN CORPUSCULAR VOLUME 85 fL (79.0-98.0); MONOCYTES # (AUTO) 0.4 K/uL (0.0-1.0); MONOCYTES % (AUTO) 6.3 % (1.7-9.3); NEUTROPHILS # (AUTO) 3.8 K/uL (1.8-7.7); NEUTROPHILS % (AUTO) 57.9 % (40.0-70.0); PLATELET COUNT (AUTO) 181 K/uL (130-430); RED BLOOD CELL COUNT(AUTO) 3.88 MIL/uL (4.2-6.2); RED CELL DISTRIBUTION WIDTH 14.1 % (9.0-15.0); WHITE BLOOD COUNT (AUTO) 6.5 K/uL (4.8-10.8)
[2023-07-17 17:58] LABS: ALANINE AMINOTRANSFERASE 35 U/L (12-78); ALBUMIN 3.6 g/dL (3.4-4.8); ANION GAP 8 (5-15); ASPARTATE AMINOTRANSFERASE 28 U/L (10-37); CALCIUM 8.9 mg/dL (8.4-11.0); CARBON DIOXIDE 25 mmol/L (23-29); CHLORIDE 104 mmol/L (98-107); CREATININE 0.77 mg/dL (0.55-1.30); GLUCOSE 94 mg/dL (74-106); POTASSIUM 3.7 mmol/L (3.5-5.1); SODIUM SERUM 137 mmol/L (136-145); TOTAL BILIRUBIN 0.5 mg/dL (0.0-1.0); TOTAL PROTEIN, SERUM 8.2 g/dL (6.4-8.3); UREA NITROGEN, BLOOD 21 mg/dL (8-21)
[2023-07-17] MEDS: DIPHENHYDRAMINE HCL 50 MG CAPSULE PO PRN (20:33)
[2023-07-18 00:07] VITALS: BP_SYST 133; PULSE 63; RESP 18; TEMP 98.4
[2023-07-18] MEDS ORDERED: ACETAMINOPHEN 325 MG TABLET PO PRN (00:30)
[2023-07-18] MEDS ORDERED: HYDROcodone/ACETAMIN 5-325 MG TAB (NORCO/ VICODIN) PO PRN (00:30)
[2023-07-18] MEDS: HYDROcodone/ACETAMIN 10-325 MG TAB PO PRN (00:51)
[2023-07-18 08:00] VITALS: O2SAT 99
[2023-07-18] MEDS ORDERED: INSULIN REGULAR, HUMAN 100 UNITS/ML, 3 ML VIAL (humuLIN R) SUBCUT PRN (10:30)
[2023-07-18] MEDS ORDERED: LORazepam 2 MG/ML VIAL IVP PRN (10:30)
[2023-07-18] MEDS: DOXAZOSIN MESYLATE 2 MG TABLET PO ONE (11:53)
[2023-07-18] MEDS: amLODIPine BESYLATE 10 MG TABLET PO ONE (11:53)
[2023-07-18] MEDS: LORazepam 1 MG TABLET PO ONE (11:57)
[2023-07-18] MEDS ORDERED: cefTRIAXone 1 GM in D5W 50 ML IV SCH (12:00)
[2023-07-18] MEDS: ceFAZolin SODIUM 2 GM in D5W 100 ML IV SCH (13:52)
[2023-07-18] MEDS: NORMAL SALINE 5 ML DISP.SYRIN IVF SCH (14:00)
[2023-07-18] MEDS: SILVER 44.4 ML GEL.ER.ML. TP ONE (17:13)
[2023-07-18 20:00] VITALS: BP_SYST 107; PULSE 58; RESP 16; TEMP 98.4; O2SAT 97
[2023-07-18] MEDS: LORazepam 1 MG TABLET PO SCH (20:57)
[2023-07-18] MEDS ORDERED: LORazepam 1 MG TABLET PO SCH (21:00)
[2023-07-19] VITALS (7 sets, daily range): BP systolic 105–137; PULSE 54–83; RESP 16–20; TEMP 97.9–99.3; O2SAT 95–99
[2023-07-19 06:26] LABS: BASOPHILS % (AUTO) 0.5 % (0.0-2.0); EOSINOPHILS # (AUTO) 0.2 K/uL (0.0-0.4); EOSINOPHILS % (AUTO) 4.2 % (0.0-4.0); HEMATOCRIT 31.2 % (36-48); HEMOGLOBIN 10.4 g/dL (12.0-16.0); LYMPHOCYTES # (AUTO) 1.8 K/uL (1.0-5.5); MEAN CORPUSCULAR HEMOGLOBIN 29 pg (27-31); MEAN CORPUSCULAR HGB CONC 33 % (32-36); MEAN CORPUSCULAR VOLUME 85 fL (79.0-98.0); MONOCYTES # (AUTO) 0.3 K/uL (0.0-1.0); NEUTROPHILS % (AUTO) 46.3 % (40.0-70.0); PLATELET COUNT (AUTO) 155 K/uL (130-430); RED BLOOD CELL COUNT(AUTO) 3.66 MIL/uL (4.2-6.2); RED CELL DISTRIBUTION WIDTH 13.7 % (9.0-15.0); WHITE BLOOD COUNT (AUTO) 4.3 K/uL (4.8-10.8)
[2023-07-19 06:34] LABS: ANION GAP 4 (5-15); CARBON DIOXIDE 28 mmol/L (23-29); CHLORIDE 104 mmol/L (98-107); CREATININE 0.75 mg/dL (0.55-1.30); GLUCOSE 121 mg/dL (74-106); POTASSIUM 3.8 mmol/L (3.5-5.1); SODIUM SERUM 136 mmol/L (136-145); UREA NITROGEN, BLOOD 15 mg/dL (8-21)
[2023-07-19] MEDS: DOXAZOSIN MESYLATE 2 MG TABLET PO SCH (09:00)
[2023-07-19] MEDS: amLODIPine BESYLATE 10 MG TABLET PO SCH (09:00)
[2023-07-19] MEDS: SILVER 44.4 ML GEL.ER.ML. TP SCH (12:04)
[2023-07-20 05:35] LABS: ERYTHROCYTE SEDIMENTATION RATE 28 MM/HR (0-20)
[2023-07-20 05:41] LABS: BASOPHILS % (AUTO) 0.5 % (0.0-2.0); EOSINOPHILS # (AUTO) 0.2 K/uL (0.0-0.4); EOSINOPHILS % (AUTO) 3.4 % (0.0-4.0); HEMATOCRIT 31.3 % (36-48); HEMOGLOBIN 10.5 g/dL (12.0-16.0); LYMPHOCYTES % (AUTO) 40.2 % (20.5-51.5); MEAN CORPUSCULAR HEMOGLOBIN 29 pg (27-31); MEAN CORPUSCULAR HGB CONC 34 % (32-36); MEAN CORPUSCULAR VOLUME 85 fL (79.0-98.0); MONOCYTES # (AUTO) 0.3 K/uL (0.0-1.0); MONOCYTES % (AUTO) 6.6 % (1.7-9.3); NEUTROPHILS # (AUTO) 2.4 K/uL (1.8-7.7); NEUTROPHILS % (AUTO) 49.3 % (40.0-70.0); PLATELET COUNT (AUTO) 162 K/uL (130-430); RED BLOOD CELL COUNT(AUTO) 3.67 MIL/uL (4.2-6.2); RED CELL DISTRIBUTION WIDTH 13.6 % (9.0-15.0); WHITE BLOOD COUNT (AUTO) 4.9 K/uL (4.8-10.8)
[2023-07-20 06:05] LABS: ALANINE AMINOTRANSFERASE 20 U/L (12-78); ALBUMIN 2.9 g/dL (3.4-4.8); ANION GAP 8 (5-15); ASPARTATE AMINOTRANSFERASE 21 U/L (10-37); CALCIUM 9.2 mg/dL (8.4-11.0); CARBON DIOXIDE 27 mmol/L (23-29); CHLORIDE 105 mmol/L (98-107); CREATININE 0.77 mg/dL (0.55-1.30); GLUCOSE 110 mg/dL (74-106); POTASSIUM 3.9 mmol/L (3.5-5.1); SODIUM SERUM 140 mmol/L (136-145); TOTAL BILIRUBIN 0.3 mg/dL (0.0-1.0); TOTAL PROTEIN, SERUM 6.6 g/dL (6.4-8.3); UREA NITROGEN, BLOOD 20 mg/dL (8-21)
[2023-07-20 08:00] VITALS: BP_SYST 129; PULSE 58; RESP 16; TEMP 97.4; O2SAT 99
[2023-07-20] MEDS: ONDANSETRON HCL 4 MG/2 ML VIAL IVP PRN (08:54)
[2023-07-20 10:36] VITALS: O2SAT 99
[2023-07-20 11:16] VITALS: BP_SYST 110; PULSE 50; RESP 18; TEMP 97.7; O2SAT 97
[2023-07-20 12:00] VITALS: BP_SYST 137; PULSE 58; RESP 16; TEMP 97.5; O2SAT 99
[2023-07-20 16:00] VITALS: BP_SYST 134; PULSE 60; RESP 20; TEMP 97.5; O2SAT 99
[2023-07-20 20:00] VITALS: BP_SYST 124; PULSE 56; RESP 18; TEMP 97; O2SAT 97; O2SAT 98
[2023-07-21 00:05] VITALS: BP_SYST 136; PULSE 58; RESP 18; TEMP 97.5; O2SAT 96
[2023-07-21 05:37] VITALS: BP_SYST 136; PULSE 51; RESP 18
[2023-07-21 07:31] LABS: BASOPHILS % (AUTO) 0.4 % (0.0-2.0); EOSINOPHILS # (AUTO) 0.2 K/uL (0.0-0.4); EOSINOPHILS % (AUTO) 4.8 % (0.0-4.0); HEMATOCRIT 31.2 % (36-48); HEMOGLOBIN 10.5 g/dL (12.0-16.0); LYMPHOCYTES # (AUTO) 2.1 K/uL (1.0-5.5); LYMPHOCYTES % (AUTO) 39.9 % (20.5-51.5); MEAN CORPUSCULAR HEMOGLOBIN 29 pg (27-31); MEAN CORPUSCULAR HGB CONC 34 % (32-36); MEAN CORPUSCULAR VOLUME 85 fL (79.0-98.0); MONOCYTES # (AUTO) 0.4 K/uL (0.0-1.0); NEUTROPHILS # (AUTO) 2.4 K/uL (1.8-7.7); NEUTROPHILS % (AUTO) 46.9 % (40.0-70.0); PLATELET COUNT (AUTO) 153 K/uL (130-430); RED BLOOD CELL COUNT(AUTO) 3.65 MIL/uL (4.2-6.2); RED CELL DISTRIBUTION WIDTH 14.2 % (9.0-15.0); WHITE BLOOD COUNT (AUTO) 5.2 K/uL (4.8-10.8)
[2023-07-21 07:39] LABS: ANION GAP 5 (5-15); CALCIUM 9.2 mg/dL (8.4-11.0); CARBON DIOXIDE 30 mmol/L (23-29); CHLORIDE 105 mmol/L (98-107); CREATININE 0.76 mg/dL (0.55-1.30); GLUCOSE 87 mg/dL (74-106); POTASSIUM 4.1 mmol/L (3.5-5.1); SODIUM SERUM 140 mmol/L (136-145); UREA NITROGEN, BLOOD 13 mg/dL (8-21)
[2023-07-21 07:53] LABS: ERYTHROCYTE SEDIMENTATION RATE 27 MM/HR (0-20)
[2023-07-21 09:47] VITALS: BP_SYST 108; PULSE 48; RESP 16; TEMP 98.2; O2SAT 94
[2023-07-21 12:39] VITALS: BP_SYST 119; PULSE 48; RESP 17; TEMP 97.5; O2SAT 99
[2023-07-21] MEDS ORDERED: CEFA1FRO IV (12:58)
[2023-07-21] MEDS ORDERED: SILV50CR43 TP (12:58)
[2023-07-21] MEDS: DOCUSATE SODIUM 100 MG CAPSULE PO ONE (14:38)
[2023-07-21 16:40] VITALS: BP_SYST 122; PULSE 50; RESP 16; TEMP 97.9; O2SAT 98
[2023-07-21 20:00] VITALS: BP_SYST 112; PULSE 54; RESP 18; TEMP 98.6; O2SAT 96
[2023-07-21] MEDS: DOCUSATE SODIUM 100 MG CAPSULE PO SCH (20:11)
[2023-07-22 00:15] VITALS: BP_SYST 116; PULSE 52; RESP 18; TEMP 97.9; O2SAT 97
[2023-07-22 05:24] LABS: BASOPHILS % (AUTO) 0.4 % (0.0-2.0); EOSINOPHILS # (AUTO) 0.2 K/uL (0.0-0.4); EOSINOPHILS % (AUTO) 4.3 % (0.0-4.0); HEMATOCRIT 29.5 % (36-48); LYMPHOCYTES # (AUTO) 2.1 K/uL (1.0-5.5); LYMPHOCYTES % (AUTO) 37.4 % (20.5-51.5); MEAN CORPUSCULAR HEMOGLOBIN 29 pg (27-31); MEAN CORPUSCULAR HGB CONC 34 % (32-36); MEAN CORPUSCULAR VOLUME 86 fL (79.0-98.0); MONOCYTES # (AUTO) 0.4 K/uL (0.0-1.0); NEUTROPHILS # (AUTO) 2.7 K/uL (1.8-7.7); NEUTROPHILS % (AUTO) 49.9 % (40.0-70.0); PLATELET COUNT (AUTO) 145 K/uL (130-430); RED BLOOD CELL COUNT(AUTO) 3.45 MIL/uL (4.2-6.2); RED CELL DISTRIBUTION WIDTH 13.9 % (9.0-15.0); WHITE BLOOD COUNT (AUTO) 5.5 K/uL (4.8-10.8)
[2023-07-22 05:37] LABS: ERYTHROCYTE SEDIMENTATION RATE 21 MM/HR (0-20)
[2023-07-22 05:38] LABS: ANION GAP 7 (5-15); CALCIUM 8.8 mg/dL (8.4-11.0); CARBON DIOXIDE 28 mmol/L (23-29); CHLORIDE 106 mmol/L (98-107); CREATININE 0.81 mg/dL (0.55-1.30); GLUCOSE 132 mg/dL (74-106); POTASSIUM 4.1 mmol/L (3.5-5.1); SODIUM SERUM 141 mmol/L (136-145); UREA NITROGEN, BLOOD 20 mg/dL (8-21)
[2023-07-22 07:50] VITALS: BP_SYST 126; RESP 16; TEMP 99; O2SAT 99
[2023-07-22 07:58] VITALS: BP_SYST 126; PULSE 50; RESP 18; TEMP 98.1
[2023-07-22 12:00] VITALS: BP_SYST 128; PULSE 52; RESP 18; TEMP 98.2; O2SAT 98
[2023-07-22 16:00] VITALS: BP_SYST 126; PULSE 60; RESP 16; TEMP 98; O2SAT 99
[2023-07-22 20:00] VITALS: BP_SYST 129; PULSE 70; RESP 18; TEMP 98.2; O2SAT 99
[2023-07-22 23:08] LABS: INR 1.1 (0.8-1.2); PROTHROMBIN TIME 11.3 SECS (9.5-12.5)
[2023-07-23] VITALS: BP_SYST 125; PULSE 62; RESP 18; TEMP 98; O2SAT 99
[2023-07-23 06:17] LABS: BASOPHILS # (AUTO) 0.1 K/uL (0.0-0.2); BASOPHILS % (AUTO) 1.1 % (0.0-2.0); EOSINOPHILS # (AUTO) 0.2 K/uL (0.0-0.4); EOSINOPHILS % (AUTO) 3.1 % (0.0-4.0); HEMATOCRIT 29.5 % (36-48); HEMOGLOBIN 10.1 g/dL (12.0-16.0); LYMPHOCYTES # (AUTO) 2.3 K/uL (1.0-5.5); LYMPHOCYTES % (AUTO) 35.1 % (20.5-51.5); MEAN CORPUSCULAR HEMOGLOBIN 29 pg (27-31); MEAN CORPUSCULAR HGB CONC 34 % (32-36); MEAN CORPUSCULAR VOLUME 86 fL (79.0-98.0); MONOCYTES # (AUTO) 0.4 K/uL (0.0-1.0); MONOCYTES % (AUTO) 5.7 % (1.7-9.3); NEUTROPHILS # (AUTO) 3.6 K/uL (1.8-7.7); PLATELET COUNT (AUTO) 146 K/uL (130-430); RED BLOOD CELL COUNT(AUTO) 3.45 MIL/uL (4.2-6.2); WHITE BLOOD COUNT (AUTO) 6.6 K/uL (4.8-10.8)
[2023-07-23 06:22] LABS: ERYTHROCYTE SEDIMENTATION RATE 31 MM/HR (0-20)
[2023-07-23 06:48] LABS: ALANINE AMINOTRANSFERASE 14 U/L (12-78); ALBUMIN 2.7 g/dL (3.4-4.8); ANION GAP 7 (5-15); ASPARTATE AMINOTRANSFERASE 17 U/L (10-37); CALCIUM 9.1 mg/dL (8.4-11.0); CARBON DIOXIDE 28 mmol/L (23-29); CHLORIDE 105 mmol/L (98-107); CREATININE 0.72 mg/dL (0.55-1.30); GLUCOSE 111 mg/dL (74-106); POTASSIUM 3.9 mmol/L (3.5-5.1); SODIUM SERUM 140 mmol/L (136-145); TOTAL BILIRUBIN 0.2 mg/dL (0.0-1.0); TOTAL PROTEIN, SERUM 6.5 g/dL (6.4-8.3); UREA NITROGEN, BLOOD 23 mg/dL (8-21)
[2023-07-23 08:00] VITALS: BP_SYST 120; PULSE 54; RESP 16; TEMP 98; O2SAT 100; O2SAT 99
[2023-07-23 11:30] VITALS: BP_SYST 131; PULSE 59; RESP 17; TEMP 98; O2SAT 99
[2023-07-23] MEDS: DEXTROSE 50% JECT 50 ML DISP.SYRIN IVP ONE (12:48)
[2023-07-23] MEDS ORDERED: PROPOFOL 200MG/ 20ML VIAL (DIPRIVAN) IV ONE (15:40)
[2023-07-23] MEDS ORDERED: WATER FOR IRRIGATION,STERILE 1,000 ML IRRIG.SOLN IR ONE (15:40)
[2023-07-23] MEDS ORDERED: KETAMINE HCL IN 0.9 % NACL 50 MG/5 ML SYRINGE ONE (15:40)
[2023-07-23] MEDS ORDERED: LR 1,000 ML IV.SOLN IV ONE (15:40)
[2023-07-23] MEDS ORDERED: LIDOCAINE/EPI 1% 1:100000 20 ML VIAL ONE (15:40)
[2023-07-23] MEDS ORDERED: NS 1000 ML IV.SOLN IV ONE (15:40)
[2023-07-23] MEDS: KETAMINE HCL IN 0.9 % NACL 50 MG/5 ML SYRINGE ONE (15:43)
[2023-07-23] MEDS ORDERED: HYDROmorphone 1 MG/ML INJ. CARTRIDGE IM PRN (16:30)
[2023-07-23] MEDS ORDERED: ONDANSETRON HCL 4 MG/2 ML VIAL IVP PRN (16:30)
[2023-07-23] MEDS ORDERED: hydrALAZINE HCL 20 MG/ML VIAL IV PRN (16:30)
[2023-07-23] MEDS ORDERED: HYDROcodone/ACETAMIN 5-325 MG TAB (NORCO/ VICODIN) PO PRN (16:30)
[2023-07-23] MEDS ORDERED: HYDROmorphone 1 MG/ML INJ. CARTRIDGE IVP PRN ×2 (16:30)
[2023-07-23] MEDS ORDERED: NALOXONE HCL 0.4 MG/ML AMP (NARCAN) IVP PRN (16:30)
[2023-07-23 16:59] VITALS: BP_SYST 144; PULSE 82; RESP 18; TEMP 98.6; O2SAT 99
[2023-07-23 20:05] VITALS: BP_SYST 111; PULSE 56; RESP 16; TEMP 97.4; O2SAT 98
[2023-07-23 21:20] VITALS: O2SAT 98
[2023-07-24 00:05] VITALS: BP_SYST 108; PULSE 59; RESP 18; TEMP 97.8; O2SAT 98
[2023-07-24 06:11] LABS: BASOPHILS % (AUTO) 0.5 % (0.0-2.0); EOSINOPHILS # (AUTO) 0.2 K/uL (0.0-0.4); EOSINOPHILS % (AUTO) 3.6 % (0.0-4.0); HEMATOCRIT 30.3 % (36-48); HEMOGLOBIN 10.2 g/dL (12.0-16.0); LYMPHOCYTES # (AUTO) 2.1 K/uL (1.0-5.5); LYMPHOCYTES % (AUTO) 35.3 % (20.5-51.5); MEAN CORPUSCULAR HEMOGLOBIN 29 pg (27-31); MEAN CORPUSCULAR HGB CONC 34 % (32-36); MEAN CORPUSCULAR VOLUME 86 fL (79.0-98.0); MONOCYTES # (AUTO) 0.3 K/uL (0.0-1.0); NEUTROPHILS # (AUTO) 3.2 K/uL (1.8-7.7); NEUTROPHILS % (AUTO) 54.6 % (40.0-70.0); PLATELET COUNT (AUTO) 152 K/uL (130-430); RED BLOOD CELL COUNT(AUTO) 3.54 MIL/uL (4.2-6.2); RED CELL DISTRIBUTION WIDTH 14.1 % (9.0-15.0); WHITE BLOOD COUNT (AUTO) 5.8 K/uL (4.8-10.8)
[2023-07-24 06:14] LABS: ERYTHROCYTE SEDIMENTATION RATE 40 MM/HR (0-20)
[2023-07-24 06:22] LABS: ANION GAP 8 (5-15); CARBON DIOXIDE 28 mmol/L (23-29); CHLORIDE 105 mmol/L (98-107); CREATININE 0.68 mg/dL (0.55-1.30); GLUCOSE 82 mg/dL (74-106); SODIUM SERUM 141 mmol/L (136-145); UREA NITROGEN, BLOOD 16 mg/dL (8-21)
[2023-07-24 08:00] VITALS: BP_SYST 98; PULSE 98; RESP 18; TEMP 98; O2SAT 98
[2023-07-24 14:00] VITALS: BP_SYST 120; PULSE 98; RESP 18; TEMP 98; O2SAT 97
[2023-07-24 14:59] VITALS: BP_SYST 140; PULSE 62; RESP 17; TEMP 98; O2SAT 98
[2023-07-24] MEDS ORDERED: ceFAZolin SODIUM 2 GM in D5W 100 ML IV SCH (22:00)
== END 2023-07-24 17:11 | DRG 935 ==
LOC: SED 15:24 → SMU 17:13
PROVIDERS: ADMIT Preventive Medicine Preventive Medicine/Occupational Environmental Medicine; ATTEND Preventive Medicine Preventive Medicine/Occupational Environmental Medicine
PROC: 02HV33Z Insertion of Infusion Device into Superior Vena Cava, Percutaneous Approach (ICD-10-PCS; 2023-07-22)
PROC: B548ZZA Ultrasonography of Superior Vena Cava, Guidance (ICD-10-PCS; 2023-07-22)
PROC: 0J9G0ZZ Drainage of Right Lower Arm Subcutaneous Tissue and Fascia, Open Approach (ICD-10-PCS; principal; 2023-07-23 15:40)
DX: T22.00XA Burn of unspecified degree of shoulder and upper limb, except wrist and hand, unspecified site, initial encounter (principal); L03.113 Cellulitis of right upper limb; E11.65 Type 2 diabetes mellitus with hyperglycemia; D64.9 Anemia, unspecified; E88.09 Other disorders of plasma-protein metabolism, not elsewhere classified; I25.10 Atherosclerotic heart disease of native coronary artery without angina pectoris; I10 Essential (primary) hypertension; R79.89 Other specified abnormal findings of blood chemistry; X08.8XXA Exposure to other specified smoke, fire and flames, initial encounter; Z88.8 Allergy status to other drugs, medicaments and biological substances; Z79.84 Long term (current) use of oral hypoglycemic drugs; Z79.899 Other long term (current) drug therapy; Y93.89 Activity, other specified; Y92.89 Other specified places as the place of occurrence of the external cause; Y99.8 Other external cause status
CPT/HCPCS: 36415; 71045; 80048; 80053; 82948; 83605; 85025; 85610; 85651; 85730; 87040; 87070; 87075; 92610-GN; 96365; 99285; J0696; J1815; J2405; J2704; J7030; J7060; J7120; Q0163